=== PATIENT | female | born 1950 | race Caucasian/White ===

== ENCOUNTER 2017-01-24 17:56 | Inpatient (IN) | payer MEDICARE, OTHER ==
[~2017-01-24] VITALS: Ht 154.9 cm; Wt 73.0 kg
[~2017-01-24 17:56] MED LIST: ACET325 PO; AMLO5TAB22 PO; CARV6.25 PO; DUONI INH; FURO20 PO; GABA300C3 PO; METF850T PO; NITR.3 SL; PRAV10 PO; PROT40TA PO; SPIR25 PO; ST JTAB PO
[2017-01-24 19:14] VITALS: TEMP 97.8
--- NOTE | 2017-01-24 19:18 | PD ---
HPI Chief Complaint: midepigastric abdominal pain Time Seen by Provider: 19:03 Travel History International Travel<30 days: No Contact w/Intl Traveler<30days: No History of Present Illness HPI The patient is a 66 year old female who presents to the [facility] emergency department with a history of midepigastric abdominal pain that she reports began while she was in the shower approximately 45 minutes prior to arrival. The patient reports that the pain is constant. She reports that the pain as an aching sensation. She reports that the pain as a 6 out of 10 in severity. She denies ever having a pain like this previously. He denies having any nausea, vomiting, or diarrhea. She reports that her last bowel movement was earlier today. She denies having any blood in her stool or black or tarry stools. The patient reports that she had chest pain just prior to this , 1 hour ago. She reports that the chest pain has resolved. She reports that the pain was in the center of her chest. She reports having intermittent dyspnea on exertion. She denies having any cough, congestion, fever, chills. Otherwise on review of systems, the patient denies any recent neck pain, urinary symptoms, or neurologic symptoms. COUNTS INCLUDE 234 BEDS AT THE [facility] Past Medical History Narrative Medical The patient's past medical history is significant for chronic systolic congestive heart failure, cardiomyopathy, coronary artery disease, dementia, hypertension, hyperlipidemia, anxiety disorder, osteoporosis, depression, acid reflux, fibromyalgia, sleep apnea, peripheral neuropathy, history of an abdominal wall cellulitis and abscess related to MRSA in January of 2015. The patient also had symptomatic anemia with a blood transfusion provided in October 2015. The patient reports that she cannot recall where the site of bleeding was at that time. Hx Anticoagulant Therapy: Yes (ASPIRIN) Arthritis: Yes Asthma: No Autoimmune Disease: No Blood Disorders: No Anxiety: Yes Depression: Yes Heart Rhythm Problems: No Cancer: No Cardiovascular Problems: Yes High Cholesterol: No Chemotherapy: No Chest Pain: Yes Congestive Heart Failure: Yes COPD: Yes Cerebrovascular Accident: Yes Coronary Artery Disease: Yes Dementia: Yes Diabetes: Yes Diminished Hearing: No Endocrine: No Fibromyalgia: Yes Gastrointestinal Disorders: Yes (GERD) GERD: Yes Glaucoma: No Genitourinary: No Headaches: No Hepatitis: No Hiatal Hernia: Yes Hypertension: Yes Immune Disorder: No Kidney Stones: No Musculoskeletal: No Neurologic: No Psychiatric: No Reproductive: No Respiratory: Yes (COPD) Immunizations Current: No Migraines: No Myocardial Infarction: No Radiation Therapy: No Renal Failure: No Seizures: No Sickle Cell Disease: No Sleep Apnea: Yes Thyroid Disease: No Ulcer: No Menopausal: Yes : 6 Para: 4 Miscarriage: 2 Tubal Ligation: Yes Past Surgical History Narrative Surgical The patient's past surgical history is significant for a ventral hernia repair, AICD placement, vaginal surgery, breast augmentation and reversal, history of cardiac catheterization. Abdominal Surgery: Yes (VENTRICAL HERNIA REPAIR) AICD: Yes (2012) Appendectomy: No Arteriovenous Shunt: No Cardiac Surgery: No Cholecystectomy: No Ear Surgery: No Endocrine Surgery: No Eye Surgery: No Genitourinary Surgery: No Gynecologic Surgery: Yes (CERVICAL & VAGINAL REBUILT 1972, STITCHES & BREAST REDUCTION IN HER 30'S) Insulin Pump: No Joint Replacement: No Oral Surgery: No Pacemaker: Yes (AICD) Thoracic Surgery: Yes (IMPLANTS PLACED AND REMOVED) Other Surgery: Yes (BREAST AUGMENTATION AND REVERSAL ) Social History Alcohol Use: No Tobacco Use: No (quit 2013) Substance Use: No Allergies-Medications (Allergen,Severity, Reaction): Coded Allergies: Keflex (Verified Allergy, Intermediate, Hives, 01/24/17) MRI PRECAUTION (Verified Adverse Reaction, Severe, NON REVO PACEMAKER LRS, 01/24/17) *MDRO Multi-Drug Resistant Organism (Unverified Adverse Reaction, Unknown , 01/24/17) MRSA abdomen 01/2015. Reported Meds & Prescriptions Reported Meds & Active Scripts Active Tylenol (Acetaminophen) 325 Mg Tab 650 Mg PO Q4H PRN 30 Days Reported Pravastatin 10 Mg Tab 10 Mg PO HS Metformin (Metformin HCl) 850 Mg Tab 850 Mg PO TIDPC With meals Gabapentin 300 Mg Cap 300 Mg PO TID Lasix (Furosemide) 20 Mg Tab 20 Mg PO DAILY Aspirin 81 Mg Chew 81 Mg CHEW ONCE Carvedilol 3.125 Mg Tab 3.125 Mg PO BID Amlodipine (Amlodipine Besylate) 5 Mg Tab 5 Mg PO DAILY Spironolactone 25 Mg Tab 25 Mg PO BID Review of Systems Except as stated in HPI: all other systems reviewed are Neg General / Constitutional: No: Fever Eyes: No: Visual changes HENT: No: Headaches Cardiovascular: Positive: Chest Pain or Discomfort, Dyspnea on exertion Respiratory: Positive: Shortness of Breath, No: Cough Gastrointestinal: Positive: Abdominal Pain, No: Nausea, Vomiting, Hematemesis , Hematochezia, Constipation, Changes in Bowel Habits, Indigestion, Loss of Appetite Genitourinary: No: Dysuria Musculoskeletal: No: Pain Skin: No Rash Neurologic: No: Weakness, Change in Mentation, Slurred Speech, Sensory Disturbance Psychiatric: No: Depression Endocrine: No: Polydipsia Hematologic/Lymphatic: No: Easy Bruising Physical Exam Narrative General: The patient is a well-developed well-nourished female in no acute distress. Head and Neck exam: Head is normocephalic atraumatic. Eyes: EOMI, pupils are equal round and reactive to light. Nose: Midline septum with pink mucous membranes Mouth: Dentition unremarkable. Moist mucus membranes. Posterior oropharynx is not erythematous. No tonsillar hypertrophy. Uvula midline. Airway patent. Neck: No palpable lymphadenopathy. No nuchal rigidity. No thyromegaly. Cardiovascular: Regular rate and rhythm without murmurs, gallops, or rubs. Lungs: Clear to auscultation bilaterally. No wheezes, rhonchi, or rales. Abdomen: Soft, with midepigastric abdominal pain on palpation along with right upper quadrant abdominal discomfort on deep palpation. No other tenderness on palpation of the other quadrants of the abdomen. No guarding, rebound, or rigidity. Negative Baylis sign. Normal bowel sounds are audible. No tenderness on palpation of McBurney's point. Extremities: No clubbing, cyanosis, or edema. 2+ pulses in all 4 extremities. No calf tenderness on palpation. Back: No costovertebral angle tenderness to palpation. Neurologic Exam: Grossly nonfocal. Skin Exam: No rash noted. Intact skin that is warm and dry. Data Data Last Documented VS Vital Signs Date Time Temp Pulse Resp B/P Pulse Ox O2 Delivery O2 Flow Rate FiO2 01/24/17 19:23 70 18 178/77 97 Room Air 01/24/17 19:14 97.8 Orders Electrocardiogram (01/24/17 19:05) Complete Blood Count With Diff (01/24/17 19:05) Comprehensive Metabolic Panel (01/24/17 19:05) Creatine Kinase (Cpk) (01/24/17 19:05) Ckmb (Isoenzyme) Profile (01/24/17 19:05) Troponin I (7/9/17 19:05) B-Type Natriuretic Peptide (01/24/17 19:05) Prothrombin Time / Inr (Pt) (01/24/17 19:05) Act Partial Throm Time (Ptt) (01/24/17 19:05) Lipase (01/24/17 19:05) Urinalysis - C+S If Indicated (01/24/17 19:05) Magnesium (Mg) (01/24/17 19:05) Chest, Single Ap (01/24/17 19:05) Iv Access Insert/Monitor (01/24/17 19:05) Ecg Monitoring (01/24/17 19:05) Oximetry (01/24/17 19:05) Type And Screen (01/24/17 19:05) Aspirin Chew (Aspirin Chew) (01/24/17 20:00) Nitroglycerin 2% Oint (Nitroglycerin 2% (01/24/17 20:00) Pantoprazole Inj (Protonix Inj) (01/24/17 20:00) Calcium Gluconate Inj (Calcium Gluconate (01/24/17 21:00) Sodium Chlor 0.9% 250 Ml Inj (Ns 250 Ml (01/24/17 21:00) Ct Abd/Pel W/O Iv Contrast (01/24/17 20:53) Admit Order (Ed Use Only) (01/24/17 21:23) Labs Laboratory Tests Test 01/24/17 19:45 White Blood Count 9.2 TH/MM3 Red Blood Count 4.47 MIL/MM3 Hemoglobin 12.9 GM/DL Hematocrit 38.3 % Mean Corpuscular Volume 85.6 FL Mean Corpuscular Hemoglobin 28.9 PG Mean Corpuscular Hemoglobin 33.8 % Concent Red Cell Distribution Width 14.2 % Platelet Count 332 TH/MM3 Mean Platelet Volume 8.0 FL Neutrophils (%) (Auto) 74.1 % Lymphocytes (%) (Auto) 16.8 % Monocytes (%) (Auto) 5.7 % Eosinophils (%) (Auto) 2.7 % Basophils (%) (Auto) 0.7 % Neutrophils # (Auto) 6.8 TH/MM3 Lymphocytes # (Auto) 1.5 TH/MM3 Monocytes # (Auto) 0.5 TH/MM3 Eosinophils # (Auto) 0.2 TH/MM3 Basophils # (Auto) 0.1 TH/MM3 CBC Comment DIFF FINAL Differential Comment Prothrombin Time 10.6 SEC Prothromb Time International 1.0 RATIO Ratio Activated Partial 27.9 SEC Thromboplast Time Sodium Level 140 MEQ/L Potassium Level 4.7 MEQ/L Chloride Level 110 MEQ/L Carbon Dioxide Level 21.5 MEQ/L Anion Gap 9 MEQ/L Blood Urea Nitrogen 55 MG/DL Creatinine 1.94 MG/DL Estimat Glomerular Filtration 26 ML/MIN Rate Random Glucose 90 MG/DL Calcium Level 7.0 MG/DL Protein Corrected Calcium 6.9 MG/DL Magnesium Level 1.6 MG/DL Total Bilirubin 0.2 MG/DL Aspartate Amino Transf 11 U/L (AST/SGOT) Alanine Aminotransferase 12 U/L (ALT/SGPT) Alkaline Phosphatase 80 U/L Total Creatine Kinase 45 U/L Troponin I 0.07 NG/ML B-Type Natriuretic Peptide 28 PG/ML Total Protein 7.5 GM/DL Albumin 3.3 GM/DL Lipase 255 U/L Blood Type A POSITIVE Antibody Screen NEGATIVE MDM Medical Decision Making Medical Screen Exam Complete: Yes Emergency Medical Condition: Yes Medical Record Reviewed: Yes Interpretation(s) Last Impressions Abdomen/Pelvis CT 01/24/172052 Signed Impressions: Service Date/Time: Tuesday, January 24, 2017 21:46 - CONCLUSION: 1. Small nonobstructing renal calculi. 2. Bilateral stable adrenal adenomas. 3. Small hiatal hernia. 4. Moderate amount of stool in the distal colon. Matthias Kimball MD Chest X-Ray 01/24/17 190 Signed Impressions: Service Date/Time: Tuesday, January 24, 2017 19:03 - CONCLUSION: No acute disease. Matthias Kimball MD Differential Diagnosis Peptic ulcer disease, versus acid reflux, versus acute coronary syndrome, versus pancreatitis, versus viral syndrome, versus symptomatic anemia. Narrative Course During the course of the patients emergency department visit, the patients history, examination, and differential diagnosis were reviewed with the patient. The patient had IV access obtained and blood work sent for analysis. The patient was placed on a feeder associate with oximetry and blood pressure monitoring. An ECG was done on arrival. The patient's ECG reveals a sinus rhythm heart rate of 71, left anterior fascicular block, left ventricular hypertrophy is noted, QRS duration is 115 ms, QTC 452 ms, no acute ST segment elevation, T waves are inverted in lead 1, aVL. The patient was initially provided aspirin 162 mg by mouth 1. Nitroglycerin 1 inch the chest wall, Protonix 80 mg IV. The patients laboratory studies were reviewed and remarkable for a BUN and creatinine that are increased compared to previously. The patient does have a baseline level of renal insufficiency that is worse today. Lipase within normal limits, troponin I is 0.07, and the intermediate range which could be related to the patient's renal insufficiency, however given the patient's chest pain she will be ruled out with serial cardiac enzymes. CPK is within normal limits. CBC is unremarkable, no evidence of anemia. Radiology studies were reviewed and remarkable for a chest x-ray that shows no acute abnormality. CT scan abdomen and pelvis shows a moderate amount of stool in the distal colon, renal calculi that are nonobstructing, stable adrenal adenomas, and a hiatal hernia. No other acute abnormality. The patients results were discussed with the patient, including the plan of care. I explained that further testing and/ or monitoring is indicated based on the patients history, examination, and/ or laboratory findings. Therefore, I recommended admission for additional evaluation. The patient expressed understanding and was agreeable with this plan. The patient was admitted to the hospital in stable condition and sent to a bed under the care of Dr. Muir. Physician Communication Physician Communication The patient's case was discussed with Dr. Muir, who did agree to admit the patient for further evaluation and treatment at this time. Diagnosis Primary Impression: Chest pain, rule out acute myocardial infarction Additional Impression: Abdominal pain Qualified Code: R10.13 - Epigastric pain Admitting Information Admitting Physician Requests: Admit Desire Reinoso MD Jan 24, 2017 19:17
--- NOTE | 2017-01-24 19:21 | RADRPT ---
EXAM DATE/TIME: 01/24/2017 19:03 [facility] COMPARISON: CHEST SINGLE AP, November 13, 2015, 6:36. INDICATIONS : Chest pain MEDICAL HISTORY : None. SURGICAL HISTORY : Pacemaker. ENCOUNTER: Initial ACUITY: 1 day PAIN SCORE: 4/10 LOCATION: chest FINDINGS: A single view of the chest demonstrates the lungs to be symmetrically aerated without evidence of mas s, infiltrate or effusion. The cardiomediastinal contours are unremarkable. There is a left subclavi an transvenous pacer in place. Osseous structures are intact. CONCLUSION: No acute disease. Matthias Kimball MD on January 24, 2017 at 19:19 Board Certified Radiologist. This report was verified electronically.
[2017-01-24 19:22] VITALS: O2SAT 96
[2017-01-24 19:23] VITALS: BP 178/77; PULSE 70; RESP 18; O2SAT 97
[2017-01-24] MEDS ORDERED: CARV3.12 PO (19:31)
[2017-01-24] MEDS ORDERED: ASPI81CH CHEW (19:31)
[2017-01-24] MEDS ORDERED: FURO1TAB62 PO (19:31)
[2017-01-24] MEDS ORDERED: METF850T PO (19:31)
[2017-01-24] MEDS ORDERED: SPIR25TA PO (19:31)
[2017-01-24] MEDS ORDERED: GABA300C5 PO (19:31)
[2017-01-24] MEDS ORDERED: AMLO5TAB2 PO (19:31)
[2017-01-24] MEDS ORDERED: PRAV10TA PO (19:31)
[2017-01-24] MEDS ORDERED: NITROGLYCERIN 2% OINT 1 GM PACKET TOPICAL ONE (20:00)
[2017-01-24] MEDS ORDERED: ASPIRIN 81 MG CHEW TAB CHEW ONE (20:00)
[2017-01-24 20:08] LABS: AUTOMATED NEUTROPHIL # 6.8 TH/MM3 (1.8-7.7); BASOPHIL # 0.1 TH/MM3 (0-0.2); BASOPHIL % 0.7 % (0.0-2.0); EOSINOPHIL # 0.2 TH/MM3 (0-0.4); EOSINOPHIL % 2.7 % (0.0-4.0); HEMATOCRIT 38.3 % (35.0-46.0); HEMO FLAGS DIFF FINAL; LYMPH % 16.8 % (9.0-44.0); LYMPHOCYTE # 1.5 TH/MM3 (1.0-4.8); MEAN CELL VOLUME 85.6 FL (80.0-100.0); MEAN CORPUSCULAR HEMOGLOBIN 28.9 PG (27.0-34.0); MEAN CORPUSCULAR HGB CONC 33.8 % (32.0-36.0); MONO % 5.7 % (0.0-8.0); NEUT % 74.1 % (16.0-70.0); PLATELET COUNT 332 TH/MM3 (150-450); RED BLOOD COUNT 4.47 MIL/MM3 (4.00-5.30); RED CELL DISTRIBUTION WIDTH 14.2 % (11.6-17.2); WHITE BLOOD COUNT 9.2 TH/MM3 (4.0-11.0)
[2017-01-24 20:26] LABS: APTT (PATIENT) 27.9 SEC (24.3-30.1); PROTHROMBIN TIME - PATIENT 10.6 SEC (9.8-11.6)
[2017-01-24 20:38] LABS: BICARBONATE 21.5 MEQ/L (21.0-32.0); MAGNESIUM 1.6 MG/DL (1.5-2.5); POTASSIUM 4.7 MEQ/L (3.5-5.1)
[2017-01-24 20:44] LABS: TOTAL BILIRUBIN ADULT 0.2 MG/DL (0.2-1.0)
[2017-01-24 20:45] LABS: CALCIUM-PROTEIN CORRECTED 6.9 MG/DL (8.5-10.1)
[2017-01-24] MEDS ORDERED: CALCIUM GLUCONATE INJ 1 GM in DEXTROSE 5% IN WATER 100ML INJ 100 ML IV ONE ×2 (21:00)
[2017-01-24] MEDS ORDERED: SODIUM CHLOR 0.9% 250 ML INJ 250 ML IV ONE (21:00)
[2017-01-24] MEDS: PANTOPRAZOLE INJ 80 MG in SODIUM CHLORIDE 0.9% INJ 100 ML IV SCH (21:42)
[2017-01-24 22:06] VITALS: BP 152/69; PULSE 65; RESP 16; O2SAT 97
--- NOTE | 2017-01-24 22:06 | RADRPT ---
EXAM DATE/TIME: 01/24/2017 21:46 [facility] COMPARISON: CT ABDOMEN & PELVIS W/O CONTRAST, January 18, 2015, 8:42. INDICATIONS : Chest abdomen were pain ORAL CONTRAST: No oral contrast ingested. RADIATION DOSE: 14.00 CTDIvol (mGy) MEDICAL HISTORY : Cerebrovascular disease. Cardiovascular disease Congestive heart failure. Hypertension, diabetes, dem entia SURGICAL HISTORY : Umbilical hernia repair. Defibrillator. ENCOUNTER: Initial ACUITY: 1 day PAIN SCALE: 5/10 LOCATION: abdomen TECHNIQUE: Volumetric scanning of the abdomen and pelvis was performed. Using automated exposure control and ad justment of the mA and/or kV according to patient size, radiation dose was kept as low as reasonably achievable to obtain optimal diagnostic quality images. DICOM format image data is available electro nically for review and comparison. FINDINGS: LOWER LUNGS: The visualized lower lungs are clear. Coronary artery calcifications are present. There is a small hi atal hernia. There are small calcified granulomas in the right lung base. LIVER: Homogeneous density without lesion. There is no dilation of the biliary tree. No calcified gallston es. The gallbladder is unremarkable. SPLEEN: Normal size without lesion. PANCREAS: Within normal limits. KIDNEYS: Normal in size and shape. There is no mass or hydronephrosis. There are small nonobstructing bilater al renal calculi. ADRENAL GLANDS: There is small stable bilateral adrenal adenomas again noted. VASCULAR: There is no aortic aneurysm. BOWEL/MESENTERY: No oral contrast was given sensitivity. There is a moderate amount of stool in the distal colon. Ther e is no free intraperitoneal air or fluid. ABDOMINAL WALL: Within normal limits. RETROPERITONEUM: There is no lymphadenopathy. BLADDER: No wall thickening or mass. REPRODUCTIVE: Within normal limits. INGUINAL: There is no lymphadenopathy or hernia. MUSCULOSKELETAL: Within normal limits for patient age. CONCLUSION: 1. Small nonobstructing renal calculi. 2. Bilateral stable adrenal adenomas. 3. Small hiatal hernia. 4. Moderate amount of stool in the distal colon. Matthias Kimball MD on January 24, 2017 at 21:58 Board Certified Radiologist. This report was verified electronically.
[2017-01-24] MEDS ORDERED: SODIUM CHLORIDE 0.9% FLUSH 10 ML FLUSH IV FLUSH PRN (22:15)
[2017-01-24] MEDS ORDERED: NALOXONE HCL 0.4 MG/ML AMP IV PRN (22:15)
[2017-01-25] VITALS (11 sets, daily range): BP systolic 135–162; BP diastolic 67–81; PULSE 60–93; RESP 16–20; TEMP 97.4–98.2; O2SAT 93–99
[2017-01-25 01:04] LABS: CALCIUM-PROTEIN CORRECTED 8.6 MG/DL (8.5-10.1)
[2017-01-25 04:50] LABS: AUTOMATED NEUTROPHIL # 3.8 TH/MM3 (1.8-7.7); BASOPHIL # 0.1 TH/MM3 (0-0.2); EOSINOPHIL # 0.3 TH/MM3 (0-0.4); EOSINOPHIL % 4.2 % (0.0-4.0); HEMATOCRIT 32.4 % (35.0-46.0); HEMO FLAGS DIFF FINAL; LYMPHOCYTE # 1.9 TH/MM3 (1.0-4.8); MEAN CELL VOLUME 85.5 FL (80.0-100.0); MEAN CORPUSCULAR HGB CONC 33.9 % (32.0-36.0); MONO % 8.5 % (0.0-8.0); NEUT % 57.3 % (16.0-70.0); PLATELET COUNT 275 TH/MM3 (150-450); RED BLOOD COUNT 3.79 MIL/MM3 (4.00-5.30); RED CELL DISTRIBUTION WIDTH 14.4 % (11.6-17.2); WHITE BLOOD COUNT 6.6 TH/MM3 (4.0-11.0)
[2017-01-25 05:18] LABS: ANION GAP 9 MEQ/L (5-15); AST (GOT) 9 U/L (15-37); BICARBONATE 22.4 MEQ/L (21.0-32.0); BLOOD UREA NITROGEN 56 MG/DL (7-18); CHLORIDE 111 MEQ/L (98-107); GLOMERULAR FILTRATION RATE 22 ML/MIN (>89); POTASSIUM 3.8 MEQ/L (3.5-5.1); SODIUM (NA) 142 MEQ/L (136-145)
[2017-01-25 05:21] LABS: ALKALINE PHOSPHATASE 71 U/L (45-117); ALT (GPT) 12 U/L (10-53); TOTAL BILIRUBIN ADULT 0.2 MG/DL (0.2-1.0)
[2017-01-25] MEDS: PANTOPRAZOLE INJ 80 MG in SODIUM CHLORIDE 0.9% INJ 100 ML IV SCH ×2 (06:14→19:08)
[2017-01-25] MEDS: SODIUM CHLORIDE 0.9% FLUSH 10 ML FLUSH IV FLUSH SCH ×2 (09:00→21:29)
--- NOTE | 2017-01-25 09:07 | HHI.HP ---
History of Present Illness Service Family medicine Primary Care Physician James Muir, DO Admission Diagnosis Midepigastric abdominal pain, Cp R/O IA Diagnoses: (1) Abdominal pain (2) Chest pain, rule out acute myocardial infarction (3) CKD (chronic kidney disease) stage 4, GFR 15-29 ml/min History of Present Illness The patient is a 66 year old female who presents to the [facility] emergency department with midepigastric abdominal pain and chest discomfort. . Patient is a poor historian and information has been obtained through chart. Abdomen continues to be tender on palpation. Patient reported that the pain was constant and aching sensation. She denies pain currently however is tender on palpation. Denies having any nausea, vomiting, or diarrhea. She reports that her last bowel movement was yesterday. She denies having any blood in her stool or black or tarry stools. She also reported that she had pain in the center of her chest. She reports having intermittent dyspnea on exertion. She denies having any cough, congestion, fever, chills. Review of Systems Constitutional: COMPLAINS OF: Fatigue, DENIES: Dizziness Respiratory: COMPLAINS OF: Shortness of breath, DENIES: Cough, Snoring, Sputum production Cardiovascular: COMPLAINS OF: Chest pain, DENIES: Lower Extremity Edema Gastrointestinal: COMPLAINS OF: Abdominal pain, DENIES: Black stools, Bloody stools, Constipation, Diarrhea, Nausea, Vomiting Musculoskeletal: DENIES: Joint pain, Stiffness Integumentary: DENIES: Pruritus, Rash Neurologic: DENIES: Abnormal gait, Headache Psychiatric: DENIES: Anxiety, Confusion Past Family Social History Allergies: Coded Allergies: Keflex (Verified Allergy, Intermediate, Hives, 01/24/17) MRI PRECAUTION (Verified Adverse Reaction, Severe, NON REVO PACEMAKER LRS, 01/24/17) *MDRO Multi-Drug Resistant Organism (Unverified Adverse Reaction, Unknown , 01/24/17) MRSA abdomen 01/2015. Past Medical History Chronic systolic congestive heart failure, cardiomyopathy, coronary artery disease, dementia, hypertension, hyperlipidemia, anxiety disorder, osteoporosis , depression, acid reflux, diabetes, fibromyalgia, sleep apnea, peripheral neuropathy, history of an abdominal wall cellulitis and abscess related to MRSA in January of 2015. The patient also had symptomatic anemia with a blood transfusion provided in October 2015. Past Surgical History Patient's past surgical history is significant for a ventral hernia repair, AICD placement, vaginal surgery, breast augmentation and reversal, history of cardiac catheterization. Active Ordered Medications Current Medications Medications (Trade) Dose Ordered Sig/Liliya Route Start Time Stop Time Status Last Admin (Protonix Inj/NS Inj) 100 ml @ 10 mls/hr Q10H IV 01/24/17 20:00 01/25/17 06:14 (NS Flush) 2 ml UNSCH PRN IV FLUSH 01/24/17 22:15 (NS Flush) 2 ml BID IV FLUSH 01/25/17 09:00 (Narcan Inj) 0.4 mg UNSCH PRN IV 01/24/17 22:15 Social History Quit smoking in 2013 No ETOH use Lives with son Physical Exam Vital Signs Vital Signs Date Time Temp Pulse Resp B/P Pulse Ox O2 Delivery O2 Flow Rate FiO2 01/25/17 08:38 98.0 65 16 162/75 97 01/25/17 07:26 97 Nasal Cannula 3.00 01/25/17 04:30 97.6 64 18 135/81 99 01/25/17 04:00 60 01/25/17 02:50 78 01/25/17 01:31 97.4 63 18 162/67 99 01/24/17 22:06 65 16 152/69 97 Nasal Cannula 2 01/24/17 19:23 70 18 178/77 97 Room Air 01/24/17 19:22 96 Room Air 01/24/17 19:14 97.8 Physical Exam GENERAL: This is a well-nourished, well-developed patient, in no apparent distress. SKIN: No rashes, ecchymoses or lesions. Cool and dry. CARDIOVASCULAR: Regular rate and rhythm without murmurs, gallops, or rubs. RESPIRATORY: Clear to auscultation. Breath sounds equal bilaterally. No wheezes , rales, or rhonchi. GASTROINTESTINAL: Abdomen soft, tender to palpation, nondistended. No hepato- splenomegaly, or palpable masses. No guarding. MUSCULOSKELETAL: Extremities without cyanosis, or edema. No calf tenderness. Negative Homans sign bilaterally. NEUROLOGICAL: Awake and alert. Poor historian. Normal speech. Laboratory Laboratory Tests Test 01/24/17 01/25/17 01/25/17 19:45 00:30 04:37 White Blood Count 9.2 6.6 Red Blood Count 4.47 3.79 Hemoglobin 12.9 11.0 Hematocrit 38.3 32.4 Mean Corpuscular Volume 85.6 85.5 Mean Corpuscular Hemoglobin 28.9 29.0 Mean Corpuscular Hemoglobin 33.8 33.9 Concent Red Cell Distribution Width 14.2 14.4 Platelet Count 332 275 Mean Platelet Volume 8.0 7.4 Neutrophils (%) (Auto) 74.1 57.3 Lymphocytes (%) (Auto) 16.8 29.0 Monocytes (%) (Auto) 5.7 8.5 Eosinophils (%) (Auto) 2.7 4.2 Basophils (%) (Auto) 0.7 1.0 Neutrophils # (Auto) 6.8 3.8 Lymphocytes # (Auto) 1.5 1.9 Monocytes # (Auto) 0.5 0.6 Eosinophils # (Auto) 0.2 0.3 Basophils # (Auto) 0.1 0.1 CBC Comment DIFF FINAL DIFF FINAL Differential Comment Prothrombin Time 10.6 Prothromb Time International 1.0 Ratio Activated Partial 27.9 Thromboplast Time Sodium Level 140 142 Potassium Level 4.7 3.8 Chloride Level 110 111 Carbon Dioxide Level 21.5 22.4 Anion Gap 9 9 Blood Urea Nitrogen 55 56 Creatinine 1.94 2.22 Estimat Glomerular Filtration 26 22 Rate Random Glucose 90 192 Calcium Level 7.0 8.7 8.7 Protein Corrected Calcium 6.9 8.6 Magnesium Level 1.6 Total Bilirubin 0.2 0.2 Aspartate Amino Transf 11 9 (AST/SGOT) Alanine Aminotransferase 12 12 (ALT/SGPT) Alkaline Phosphatase 80 71 Total Creatine Kinase 45 Troponin I 0.07 0.06 0.06 B-Type Natriuretic Peptide 28 Total Protein 7.5 7.4 6.9 Albumin 3.3 3.1 Lipase 255 Blood Type A POSITIVE Antibody Screen NEGATIVE Result Diagram: 01/25/1743601/25/17436 Imaging Last 72 hours Impressions Abdomen/Pelvis CT 01/24/172052 Signed Impressions: Service Date/Time: Tuesday, January 24, 2017 21:46 - CONCLUSION: 1. Small nonobstructing renal calculi. 2. Bilateral stable adrenal adenomas. 3. Small hiatal hernia. 4. Moderate amount of stool in the distal colon. Matthias Kimball MD Chest X-Ray 01/24/17 [id number] Signed Impressions: Service Date/Time: Tuesday, January 24, 2017 19:03 - CONCLUSION: No acute disease. Matthias Kimball MD Assessment and Plan Problem List: (1) Abdominal pain Status: Acute Plan: Abdomen is tender to palpation. On protonix gtt. GI consulted. CT of abdomen and pelvis with nonobstructing renal calculi. 2. Bilateral stable adrenal adenomas. 3. Small hiatal hernia. 4. Moderate amount of stool in the distal colon (2) Chest pain, rule out acute myocardial infarction Status: Acute Plan: Mildly elevated troponin at .06 and .07 could be related to CKD however will consult cardiology with patient significant heart disease (3) Hypertension Status: Acute Plan: continue current therapy will monitor (4) Diabetes mellitus Status: Acute Plan: BS ordered AC and HS with SS . Metformin on hold (5) CKD (chronic kidney disease) stage 4, GFR 15-29 ml/min Status: Acute Plan: GFR 22 with a BUN of 55 and creat 2.22. Will monitor closely and recheck in AM Assessment and Plan Assessment and plan discussed with Dr. Muir Discussed Condition With Nursing Physician Attestation I and the A[employer] FACILITY MANAGER have both examined this patient and reviewed this note and I agree with these findings and plan of care. James Muir DO Problem Qualifiers (1) Abdominal pain: Qualified Code: R10.13 - Epigastric pain Eva Sosa [facility] Jan 25, 2017 09:07
[2017-01-25] MEDS ORDERED: ACETAMINOPHEN 325 MG TAB PO PRN (09:15)
[2017-01-25] MEDS ORDERED: ASPIRIN 81 MG CHEW TAB CHEW ONE (09:15)
[2017-01-25] MEDS ORDERED: DEXTROSE 50% IN WATER 50 ML VIAL(D50) IV PRN (10:00)
[2017-01-25] MEDS ORDERED: GLUCAGON 1 MG/ML VIAL OTHER PRN (10:00)
[2017-01-25] MEDS ORDERED: BISACODYL 10 MG SUPP RECTAL ONE (10:30)
--- NOTE | 2017-01-25 11:28 | MB ---
cc: CAITLYN CARTAGENA M.D. DATE OF CONSULTATION 01/25/2017 REASON FOR CONSULTATION Evaluation of elevated troponin. HISTORY OF PRESENT ILLNESS Iris Woodson is a 66-year-old female with known heart disease. She had a cardiac catheterization on October 28, 2012. Ejection fraction was 15-20%. The right coronary artery was subtotally occluded with [id number] collaterals. There were only irregularities of her left coronary system. Her last echo was April 26, 2013. Ejection fraction was 20-25% with mild to moderate mitral regurgitation and a left atrial size of 5.6 cm. She had a Biotronik defibrillator implanted by Dr. Azul. The last time this was checked at [facility] was August 20, 2014 and it showed normal operation. The patient has some dementia. She does not know where she lives she does not know who her doctor is. She knows she is at the hospital but does not know which one. She does not know what year this is other than it is in the year . She cannot tell me who the President is. She came in with abdominal pain and she points to the midportion of her abdomen; it is better now. I cannot elicit any chest pain from her at all. It is not clear to me who she has been following with from a cardiac perspective. She has seen multiple different providers. She had a cardiology consult by Dr. Whyte on April 17, 2014; that is the last insurance job titles she saw. She has got a mildly elevated troponin. I cannot elicit any anginal symptoms from her at all. She says she and her son live in the same place. Denies any chest pain, shortness of breath or any other cardiovascular complaints that I can elicit. MEDICATIONS Listed in the ER sheet include - 1. Pravastatin 10 mg. 2. Lasix 20 mg. 3. Carvedilol 3.125 b.i.d. 4. Amlodipine 5 mg. 5. Spirolactone 25 mg p.o. b.i.d. PAST MEDICAL HISTORY 1. Cardiomyopathy. 2. Coronary disease. 3. Dementia. 4. Hypertension. 5. Hyperlipidemia. 6. Anxiety. 7. Osteoporosis. 8. Depression. 9. Acid reflux. 10. Diabetes. 11. Fibromyalgia. 12. Carotid disease with apparent occlusion of the right internal carotid artery. 13. COPD. 14. Sleep apnea. PAST SURGICAL HISTORY 1. Ventral hernia repair. 2. AICD placement. 3. Vaginal surgery. 4. Breast augmentation and reversal. 5. Previous cath. MEDICATIONS LISTED HERE 1. Intravenous pantoprazole. 2. She has received aspirin 1 inch paste. 3. She is prescribed carvedilol. 4. Lasix. 5. Spironolactone. PHYSICAL EXAMINATION GENERAL: Physical exam reveals an elderly, alert, white female in no acute distress. VITAL SIGNS: Blood pressures fluctuate as high as 178/77 and as low as 135/81. HEENT: Exam is unremarkable. NECK: I do not appreciate any bruits. There is no JVD. CHEST: Clear to auscultation. CHEST EXAM: She has defibrillator in the left upper chest which is well-healed. CARDIAC EXAM: S1 andS2. Regular rate and rhythm. No murmurs or gallops appreciated. ABDOMEN: Soft, nontender. At this time bowel sounds are positive. EXTREMITIES: No clubbing, cyanosis or edema. Pedal pulses are reduced. IMAGING STUDIES She has had abdominopelvic CT and a chest x-ray. CT scan notable for small nonobstructive renal calculi, bilateral stable adrenal adenoma, small hiatal hernia. Her chest x-ray report describes no acute disease. LABORATORIES White count is normal. Hematocrit 32.4. BUN is 56, creatinine 2.22, potassium normal. Troponins are 0.07, 0.06, 0.06. Her creatinine has been all over the place; it was 1.03 in October 2015; this may have been spurious. Most of the other values are in the 1.4 to 1.6 range. Troponins were 0.07, 0.06 and 0.02. They were 0.12 in October 2015. They have a history of being a elevated up to 0.20 in 2013. Current elevations or not remarkable for her. CONCLUSIONS This is a 66-year-old woman with a known severe cardiomyopathy. She has a totally occluded right coronary artery. She comes in with abdominal pain. I really cannot elicit any anginal symptoms. Troponins are minimally elevated in a nonspecific fashion, not suggestive of ACS. She does not appear to have ACS on her exam. Her defibrillator has not been checked that we know of since September 02, so I am having [facility] check her defibrillator. I was not going to add an ANNIA or an ARB in view of the elevated BUN and creatinine. It may be worth having Renal see her. I will be available as needed. Please call if you have any questions. MD PRATIK Nelson/MICAH /11:06 AM /11:16 AM
[2017-01-25] MEDS: ENOXAPARIN SODIUM 30 MG/0.3 ML SYRINGE SQ SCH (11:30)
[2017-01-25] MEDS: INSULIN ASPART SUPPLEMENTAL SCALE SQ SCH ×3 (13:14→21:30)
--- NOTE | 2017-01-25 14:21 | EKG ---
Date Performed: 01/24/2017 Time Performed: 19:16:42 PTAGE: 66 years EKG: Sinus rhythm LEFT ANTERIOR FASCICULAR BLOCK LEFT VENTRICULAR HYPERTROPHY AND ST-T CHANGE POSSIBLE ANTERIOR MYOCAR DIAL INFARCTION POSSIBLE INFERIOR INFARCTION ABNORMAL ECG Since PREVIOUS TRACING , no significant change noted PREVIOUS TRACIN11/13/2015 06.03 DOCTOR: Rui Harper Interpretating Date/Time 01/25/2017 14:19:15
--- NOTE | 2017-01-25 16:18 | PD.CONS ---
HPI History of Present Illness This is a 66 year old female with hx AICD who presented to the ER for stomach pain. Onset yesterday, epigastric pain, pt cannot qualify further. The pain lasted an hour and then went away. Never had this pain before. Denies hx ulcers but pt was here for similar in 2016 had EGD 10/2015 that found medium size ulcer at GE junction, stricture, recommended repeat 4wks; colonoscopy at same time with poop prep to be repeated following day. Pt unaware if she repeated procedures but says she never followed up with GI as outpatient. NO n/ v, diarrhea, blood in stool, tarry stool, dysphagia. Pt does not know if she has lost weight. She is not currently having any pain. PFSH Past Medical History denies heart trouble but has AICD Past Surgical History AICD placement Coded Allergies: Keflex (Verified Allergy, Intermediate, Hives, 01/24/17) MRI PRECAUTION (Verified Adverse Reaction, Severe, NON REVO PACEMAKER LRS, 01/24/17) *MDRO Multi-Drug Resistant Organism (Unverified Adverse Reaction, Unknown , 01/24/17) MRSA abdomen 01/2015. Family History none Social History no ETOH no tobacco no illicit drugs Review of Systems Constitutional: DENIES: Fever Eyes: DENIES: Blurred vision Ears, nose, mouth, throat: DENIES: Hearing loss Respiratory: DENIES: Cough Cardiovascular: DENIES: Chest pain Gastrointestinal: DENIES: Abdominal pain, Black stools, Bloody stools, Constipation, Diarrhea, Nausea, Vomiting Genitourinary: DENIES: Hematuria Musculoskeletal: DENIES: Joint Swelling Integumentary: DENIES: Pruritus Hematologic/lymphatic: DENIES: Bruising Neurologic: DENIES: Abnormal gait Psychiatric: DENIES: Confusion GI Exam Vitals I&O Vital Signs Date Time Temp Pulse Resp B/P Pulse Ox O2 Delivery O2 Flow Rate FiO2 01/25/17 11:38 97.8 93 20 151/72 99 01/25/17 08:38 98.0 65 16 162/75 97 01/25/17 07:26 97 Nasal Cannula 3.00 01/25/17 04:30 97.6 64 18 135/81 99 01/25/17 04:00 60 01/25/17 02:50 78 01/25/17 01:31 97.4 63 18 162/67 99 01/24/17 22:06 65 16 152/69 97 Nasal Cannula 2 01/24/17 19:23 70 18 178/77 97 Room Air 01/24/17 19:22 96 Room Air 01/24/17 19:14 97.8 Imaging Last Impressions Abdomen/Pelvis CT 01/24/172052 Signed Impressions: Service Date/Time: Tuesday, January 24, 2017 21:46 - CONCLUSION: 1. Small nonobstructing renal calculi. 2. Bilateral stable adrenal adenomas. 3. Small hiatal hernia. 4. Moderate amount of stool in the distal colon. Matthias Kimball MD Chest X-Ray 01/24/171904 Signed Impressions: Service Date/Time: Tuesday, January 24, 2017 19:03 - CONCLUSION: No acute disease. Matthias Kimball MD Laboratory Test 01/24/17 01/25/17 01/25/17 19:45 00:30 04:37 White Blood Count 9.2 TH/MM3 6.6 TH/MM3 Red Blood Count 4.47 MIL/MM3 3.79 MIL/MM3 Hemoglobin 12.9 GM/DL 11.0 GM/DL Hematocrit 38.3 % 32.4 % Mean Corpuscular Volume 85.6 FL 85.5 FL Mean Corpuscular Hemoglobin 28.9 PG 29.0 PG Mean Corpuscular Hemoglobin 33.8 % 33.9 % Concent Red Cell Distribution Width 14.2 % 14.4 % Platelet Count 332 TH/MM3 275 TH/MM3 Mean Platelet Volume 8.0 FL 7.4 FL Neutrophils (%) (Auto) 74.1 % 57.3 % Lymphocytes (%) (Auto) 16.8 % 29.0 % Monocytes (%) (Auto) 5.7 % 8.5 % Eosinophils (%) (Auto) 2.7 % 4.2 % Basophils (%) (Auto) 0.7 % 1.0 % Neutrophils # (Auto) 6.8 TH/MM3 3.8 TH/MM3 Lymphocytes # (Auto) 1.5 TH/MM3 1.9 TH/MM3 Monocytes # (Auto) 0.5 TH/MM3 0.6 TH/MM3 Eosinophils # (Auto) 0.2 TH/MM3 0.3 TH/MM3 Basophils # (Auto) 0.1 TH/MM3 0.1 TH/MM3 CBC Comment DIFF FINAL DIFF FINAL Differential Comment Prothrombin Time 10.6 SEC Prothromb Time International 1.0 RATIO Ratio Activated Partial 27.9 SEC Thromboplast Time Sodium Level 140 MEQ/L 142 MEQ/L Potassium Level 4.7 MEQ/L 3.8 MEQ/L Chloride Level 110 MEQ/L 111 MEQ/L Carbon Dioxide Level 21.5 MEQ/L 22.4 MEQ/L Anion Gap 9 MEQ/L 9 MEQ/L Blood Urea Nitrogen 55 MG/DL 56 MG/DL Creatinine 1.94 MG/DL 2.22 MG/DL Estimat Glomerular Filtration 26 ML/MIN 22 ML/MIN Rate Random Glucose 90 MG/DL 192 MG/DL Calcium Level 7.0 MG/DL 8.7 MG/DL 8.7 MG/DL Protein Corrected Calcium 6.9 MG/DL 8.6 MG/DL Magnesium Level 1.6 MG/DL Total Bilirubin 0.2 MG/DL 0.2 MG/DL Aspartate Amino Transf 11 U/L 9 U/L (AST/SGOT) Alanine Aminotransferase 12 U/L 12 U/L (ALT/SGPT) Alkaline Phosphatase 80 U/L 71 U/L Total Creatine Kinase 45 U/L Troponin I 0.07 NG/ML 0.06 NG/ML 0.06 NG/ML B-Type Natriuretic Peptide 28 PG/ML Total Protein 7.5 GM/DL 7.4 GM/DL 6.9 GM/DL Albumin 3.3 GM/DL 3.1 GM/DL Lipase 255 U/L Blood Type A POSITIVE Antibody Screen NEGATIVE Physical Examination HEENT: PERRL; normocephalic; atraumatic; no jaundice. CHEST: CTA CARDIAC: RRR ABDOMEN: Soft, nondistended, nontender; no hepatosplenomegaly; bowel sounds are present in all four quadrants. EXTREMITIES: No clubbing, cyanosis, or edema. SKIN: Normal; no rash; no jaundice. GAS WELDER APPRENTICE: alert, oriented to self and place. Assessment and Plan Plan ASSESSMENT - epigastric pain - onset yesterday, has improved and pt currently asymptomatic. She does have hx ulcer, had EGD/colonoscopy 2015 --> med size ulcer GE junction, stricture, repeat EGD in 4 weeks, colonoscopy poor prep repeat following day. - occluded right coronary artery - per cardiology - AICD - per cardiology defibrillator is going to be checked. PLAN - KAILYN - f/u with GI as outpatient for repeat EGD & colonoscopy - supportive care - okay to d/c from GI standpoint This pt seen by myself and Dr Segal and this note is written on his behalf Kadi Catalan Jan 25, 2017 16:18
[2017-01-25] MEDS: DOCUSATE SODIUM 50 MG/SENNA 8.6 MG TAB PO SCH (21:29)
[2017-01-25] MEDS: CARVEDILOL 3.125 MG TAB PO SCH (21:29)
[2017-01-25] MEDS: SPIRONOLACTONE 25 MG TAB PO SCH (21:29)
[2017-01-25] MEDS: PRAVASTATIN SOD 10 MG TAB PO SCH (21:29)
[2017-01-26] VITALS (7 sets, daily range): BP systolic 139–177; BP diastolic 67–79; PULSE 63–77; RESP 17–20; TEMP 96.9–98.5; O2SAT 94–96
[2017-01-26] MEDS: PANTOPRAZOLE INJ 80 MG in SODIUM CHLORIDE 0.9% INJ 100 ML IV SCH (02:00)
[2017-01-26 06:30] LABS: ANION GAP 10 MEQ/L (5-15); BICARBONATE 19.3 MEQ/L (21.0-32.0); BLOOD UREA NITROGEN 56 MG/DL (7-18); CHLORIDE 112 MEQ/L (98-107); GLOMERULAR FILTRATION RATE 23 ML/MIN (>89); POTASSIUM 4.5 MEQ/L (3.5-5.1); SODIUM (NA) 141 MEQ/L (136-145)
[2017-01-26 06:31] LABS: HDL CHOLESTEROL 32.3 MG/DL (40.0-60.0); LDL CHOLESTEROL 50 MG/DL (0-99)
[2017-01-26 06:34] LABS: AUTOMATED NEUTROPHIL # 4.9 TH/MM3 (1.8-7.7); BASOPHIL # 0.1 TH/MM3 (0-0.2); EOSINOPHIL # 0.3 TH/MM3 (0-0.4); EOSINOPHIL % 3.4 % (0.0-4.0); HEMO FLAGS DIFF FINAL; LYMPH % 22.6 % (9.0-44.0); LYMPHOCYTE # 1.7 TH/MM3 (1.0-4.8); MEAN CELL VOLUME 85.8 FL (80.0-100.0); MEAN CORPUSCULAR HEMOGLOBIN 28.9 PG (27.0-34.0); MEAN CORPUSCULAR HGB CONC 33.7 % (32.0-36.0); MONO % 8.8 % (0.0-8.0); NEUT % 64.2 % (16.0-70.0); PLATELET COUNT 320 TH/MM3 (150-450); RED BLOOD COUNT 4.08 MIL/MM3 (4.00-5.30); WHITE BLOOD COUNT 7.6 TH/MM3 (4.0-11.0)
[2017-01-26] MEDS: INSULIN ASPART SUPPLEMENTAL SCALE SQ SCH ×4 (07:00→21:00)
[2017-01-26] MEDS: SODIUM CHLORIDE 0.9% FLUSH 10 ML FLUSH IV FLUSH SCH ×2 (08:55→21:00)
[2017-01-26] MEDS: amLODIPine BESYLATE 5 MG TAB PO SCH (08:56)
[2017-01-26] MEDS: PANTOPRAZOLE SOD 40 MG DELAYED RELEASE TAB PO SCH (08:56)
[2017-01-26] MEDS: CARVEDILOL 3.125 MG TAB PO SCH ×2 (08:56→21:00)
[2017-01-26] MEDS: FUROSEMIDE 20 MG TAB PO SCH (08:56)
[2017-01-26] MEDS: SPIRONOLACTONE 25 MG TAB PO SCH ×2 (08:56→21:00)
--- NOTE | 2017-01-26 09:23 | HHI.PR ---
Subjective Remarks Patient resting comfortable. Denies any pain. Protonix gtt infusing. Objective Vital Signs Date Time Temp Pulse Resp B/P Pulse Ox O2 Delivery O2 Flow Rate FiO2 01/26/17 08:00 97.3 70 18 146/67 94 01/26/17 04:30 97.4 74 20 171/72 96 01/26/17 00:56 98.5 63 18 139/67 96 01/25/17 23:08 67 01/25/17 20:00 98.2 79 20 144/71 97 01/25/17 16:25 98.2 72 20 135/72 93 01/25/17 11:38 97.8 93 20 151/72 99 I/O 01/25/17 01/25/17 01/25/17 01/26/17 01/26/17 01/26/17 07:00 15:00 23:00 07:00 15:00 23:00 Intake Total 240 ml Output Total 0 ml Balance 240 ml Intake Oral 240 ml Output Urine Total 0 ml Result Diagram: 01/26/17 0526 01/25/17 0437 Imaging Last 72 hours Impressions Abdomen/Pelvis CT 01/24/172052 Signed Impressions: Service Date/Time: Tuesday, January 24, 2017 21:46 - CONCLUSION: 1. Small nonobstructing renal calculi. 2. Bilateral stable adrenal adenomas. 3. Small hiatal hernia. 4. Moderate amount of stool in the distal colon. Matthias Kimball MD Chest X-Ray 01/24/17 1905 Signed Impressions: Service Date/Time: Tuesday, January 24, 2017 19:03 - CONCLUSION: No acute disease. Matthias Kimball MD Objective Remarks GENERAL: Alert not oriented SKIN: Warm and dry. HEAD: Normocephalic. EYES: No scleral icterus. No injection or drainage. NECK: Supple, trachea midline. No JVD or lymphadenopathy. CARDIOVASCULAR: Regular rate and rhythm without murmurs, gallops, or rubs. RESPIRATORY: Breath sounds equal bilaterally. No accessory muscle use. GASTROINTESTINAL: Abdomen soft, non-tender, nondistended. MUSCULOSKELETAL: No cyanosis, or edema. BACK: Nontender without obvious deformity. No CVA tenderness. Medications and IVs Current Medications Medications (Trade) Dose Ordered Sig/Liliya Route Start Time Stop Time Status Last Admin (NS Flush) 2 ml UNSCH PRN IV FLUSH 01/24/17 22:15 (NS Flush) 2 ml BID IV FLUSH 01/25/17 09:00 01/26/17 08:55 (Narcan Inj) 0.4 mg UNSCH PRN IV 01/24/17 22:15 (Tylenol) 650 mg Q4H PRN PO 01/25/17 09:15 (Norvasc) 5 mg DAILY PO 01/26/17 09:00 01/26/17 08:56 (Coreg) 3.125 mg BID PO 01/25/17 21:00 01/26/17 08:56 (Lasix) 20 mg DAILY PO 01/26/17 09:00 01/26/17 08:56 (Pravachol) 10 mg HS PO 01/25/17 21:00 01/25/17 21:29 (Aldactone) 25 mg BID PO 01/25/17 21:00 01/26/17 08:56 (Lovenox Inj) 30 mg Q24H SQ 01/25/17 10:00 01/25/17 11:30 (D50w (Vial) Inj) 50 ml UNSCH PRN IV 01/25/17 10:00 (Glucagon Inj) 1 mg UNSCH PRN OTHER 01/25/17 10:00 (Marine-Colace) 2 tab HS PO 01/25/17 21:00 01/25/17 21:29 (Protonix) 40 mg DAILY PO 01/26/17 09:00 01/26/17 08:56 Assessment and Plan Problem List: (1) Abdominal pain Status: Acute Plan: On protonix gtt which has been discontinued. GI consulted and cleared for discharge from their stand point. CT of abdomen and pelvis with nonobstructing renal calculi. 2. Bilateral stable adrenal adenomas. 3. Small hiatal hernia. 4. Moderate amount of stool in the distal colon Denies and abdominal pain and no tenderness noted. She does have hx ulcer, had EGD/colonoscopy 2015 --> med size ulcer GE junction, stricture (2) Chest pain, rule out acute myocardial infarction Status: Acute Plan: Mildly elevated troponin at .06 and .07 could be related to CKD however will consult cardiology with patient significant heart disease occluded right coronary artery - per cardiology AICD - per cardiology defibrillator is going to be checked (3) Hypertension Status: Acute Plan: continue current therapy will monitor (4) Diabetes mellitus Status: Acute Plan: BS ordered AC and HS with SS . Metformin on hold. BS 145-192 (5) CKD (chronic kidney disease) stage 4, GFR 15-29 ml/min Status: Acute Plan: GFR 23. Bun and Creat stable. (6) Vitamin D deficiency Status: Acute Plan: Replacement added Assessment and Plan Assessment and plan discussed with Dr. Muir Discussed Condition With Nursing Physician Attestation I and the BANQUET WAITER/WAITRESS have both examined this patient and reviewed this note and i agree with these findings and plan of care. James Muir DO Problem Qualifiers (1) Abdominal pain: Qualified Code: R10.13 - Epigastric pain Eva Sosa [facility] Jan 26, 2017 09:22
[2017-01-26] MEDS: CHOLECALCIFEROL (VIT D3) 5000 UNIT CAP PO SCH (10:02)
[2017-01-26] MEDS: ENOXAPARIN SODIUM 30 MG/0.3 ML SYRINGE SQ SCH (10:03)
--- NOTE | 2017-01-26 10:04 | HHI.FF ---
Face to Face Verification Diagnosis: (1) Congestive heart failure (2) Cardiomyopathy Physical Therapy Order: Evaluate and Treat Occupational Therapy Order: Evaluate and Treat I have seen patient Iris Woodson on 01/26/17. My clinical findings support the need for the requested home health care services because: Ltd mobility - disease progression I certify that my clinical findings support that this patient is homebound because: Unsteady gait/balance Eva Sosa Jan 26, 2017 10:04
--- NOTE | 2017-01-26 14:02 | PD.CONS ---
HPI Service Nephrology Consult Requested By Dr. Muir Reason for Consult Acute renal insufficiency Primary Care Physician James Muir, DO History of Present Illness Patient is a 66-year-old white female with history of cardiomyopathy, AICD placement states that she has history of diabetes as well. Records she was on metformin, she came in with abdominal pain and inability to eat or drink properly creatinine went up to 2.2 and now declining since she started eating to 2.1 Review of Systems Constitutional: COMPLAINS OF: Fatigue Gastrointestinal: COMPLAINS OF: Abdominal pain Past Family Social History Allergies: Coded Allergies: Keflex (Verified Allergy, Intermediate, Hives, 01/24/17) MRI PRECAUTION (Verified Adverse Reaction, Severe, NON REVO PACEMAKER LRS, 01/24/17) *MDRO Multi-Drug Resistant Organism (Unverified Adverse Reaction, Unknown , 01/24/17) MRSA abdomen 01/2015. Past Medical History Cardiomyopathy AICD History of diabetes History of the hypertension Dementia History of cerebrovascular disease Past Surgical History AICD placed Reported Medications Reported Meds & Active Scripts Active Tylenol (Acetaminophen) 325 Mg Tab 650 Mg PO Q4H PRN 30 Days Reported Spironolactone 25 Mg Tab 25 Mg PO BID Pravastatin 10 Mg Tab 10 Mg PO HS Metformin (Metformin HCl) 850 Mg Tab 850 Mg PO TIDPC With meals Gabapentin 300 Mg Cap 300 Mg PO TID Lasix (Furosemide) 20 Mg Tab 20 Mg PO DAILY Aspirin 81 Mg Chew 81 Mg CHEW ONCE Carvedilol 3.125 Mg Tab 3.125 Mg PO BID Amlodipine (Amlodipine Besylate) 5 Mg Tab 5 Mg PO DAILY Active Ordered Medications Current Medications Medications (Trade) Dose Ordered Sig/Liliya Route Start Time Stop Time Status Last Admin (NS Flush) 2 ml UNSCH PRN IV FLUSH 01/24/17 22:15 (NS Flush) 2 ml BID IV FLUSH 01/25/17 09:00 01/26/17 08:55 (Narcan Inj) 0.4 mg UNSCH PRN IV 01/24/17 22:15 (Tylenol) 650 mg Q4H PRN PO 01/25/17 09:15 (Norvasc) 5 mg DAILY PO 01/26/17 09:00 01/26/17 08:56 (Coreg) 3.125 mg BID PO 01/25/17 21:00 01/26/17 08:56 (Lasix) 20 mg DAILY PO 01/26/17 09:00 01/26/17 08:56 (Pravachol) 10 mg HS PO 01/25/17 21:00 01/25/17 21:29 (Aldactone) 25 mg BID PO 01/25/17 21:00 01/26/17 08:56 (Lovenox Inj) 30 mg Q24H SQ 01/25/17 10:00 01/26/17 10:03 (D50w (Vial) Inj) 50 ml UNSCH PRN IV 01/25/17 10:00 (Glucagon Inj) 1 mg UNSCH PRN OTHER 01/25/17 10:00 (Marine-Colace) 2 tab HS PO 01/25/17 21:00 01/25/17 21:29 (Protonix) 40 mg DAILY PO 01/26/17 09:00 01/26/17 08:56 (Vitamin D3) 5,000 units DAILY PO 01/26/17 09:30 01/26/17 10:02 Family History Noncontributory Social History Denies smoking or alcohol Physical Exam Vital Signs Vital Signs Date Time Temp Pulse Resp B/P Pulse Ox O2 Delivery O2 Flow Rate FiO2 01/26/17 12:16 98.2 76 18 148/79 95 01/26/17 08:00 97.3 70 18 146/67 94 01/26/17 04:30 97.4 74 20 171/72 96 01/26/17 00:56 98.5 63 18 139/67 96 01/25/17 23:08 67 01/25/17 20:00 98.2 79 20 144/71 97 01/25/17 16:25 98.2 72 20 135/72 93 Physical Exam GENERAL: Well-nourished, well-developed patient. SKIN: Warm and dry. HEAD: Normocephalic. EYES: No scleral icterus. No injection or drainage. NECK: Supple, trachea midline. No JVD or lymphadenopathy. CARDIOVASCULAR: Regular rate and rhythm without murmurs, gallops, or rubs. AICD in place RESPIRATORY: Breath sounds equal bilaterally. No accessory muscle use. GASTROINTESTINAL: Abdomen soft, non-tender, nondistended. EXTREMITIES: No cyanosis, or edema. NEUROLOGICAL: Awake, alert, and oriented x 3. Non-focal. Laboratory Laboratory Tests Test 01/25/17 01/26/17 16:30 05:26 Nasal Screen MRSA (PCR) MRSA NOT DETECTED White Blood Count 7.6 Red Blood Count 4.08 Hemoglobin 11.8 Hematocrit 35.0 Mean Corpuscular Volume 85.8 Mean Corpuscular Hemoglobin 28.9 Mean Corpuscular Hemoglobin 33.7 Concent Red Cell Distribution Width 14.0 Platelet Count 320 Mean Platelet Volume 7.8 Neutrophils (%) (Auto) 64.2 Lymphocytes (%) (Auto) 22.6 Monocytes (%) (Auto) 8.8 Eosinophils (%) (Auto) 3.4 Basophils (%) (Auto) 1.0 Neutrophils # (Auto) 4.9 Lymphocytes # (Auto) 1.7 Monocytes # (Auto) 0.7 Eosinophils # (Auto) 0.3 Basophils # (Auto) 0.1 CBC Comment DIFF FINAL Differential Comment Sodium Level 141 Potassium Level 4.5 Chloride Level 112 Carbon Dioxide Level 19.3 Anion Gap 10 Blood Urea Nitrogen 56 Creatinine 2.13 Estimat Glomerular Filtration 23 Rate Random Glucose 117 Calcium Level 9.2 Triglycerides Level 210 Cholesterol Level 124 LDL Cholesterol 50 HDL Cholesterol 32.3 Cholesterol/HDL Ratio 3.83 25-Hydroxy Vitamin D Total 7.4 Result Diagram: 01/26/1752501/26/17525 Imaging Last Impressions Abdomen/Pelvis CT 01/24/172052 Signed Impressions: Service Date/Time: Tuesday, January 24, 2017 21:46 - CONCLUSION: 1. Small nonobstructing renal calculi. 2. Bilateral stable adrenal adenomas. 3. Small hiatal hernia. 4. Moderate amount of stool in the distal colon. Matthias Kimball MD Chest X-Ray 01/24/171904 Signed Impressions: Service Date/Time: Tuesday, January 24, 2017 19:03 - CONCLUSION: No acute disease. Matthias Kimball MD Assessment and Plan Problem List: (1) Acute renal failure Plan: Medications due to dehydration since she is having eating better she has a good response we can cautiously hydrate her and follow BMP Appears to be prerenal in etiology. Check urine analysis and cultures, urine sodium, urine protein to creatinine ratio IV fluid half normal saline with 50 mEq/L of sodium bicarbonate at 83 cc an hour Avoid Nephrotoxic medications (2) AICD (automatic cardioverter/defibrillator) present Plan: Continue to monitor (3) Abdominal pain Plan: Resolved (4) Diabetes mellitus Plan: Continue to monitor Problem Qualifiers (1) Acute renal failure: Qualified Code: N17.9 - Acute renal failure, unspecified acute renal failure type (2) Abdominal pain: Qualified Code: R10.13 - Epigastric pain Ruddy Mathews MD Jan 26, 2017 14:01
[2017-01-26 15:28] LABS: BACTERIA, URINE MANY /hpf; BLOOD, URINE NEG (NEG); GLUCOSE,URINE NEG (NEG); KETONE, URINE NEG (NEG); MUCUS URINE FEW /lpf (OCC); NITRITE,URINE NEG (NEG); URINE COLOR LIGHT-YELLOW (YELLW/STRAW)
[2017-01-26 15:32] LABS: COMMENT (UR) CATH-CULTURE IND; CULTURE IF INDICATED CATH CULTURE IND
[2017-01-26] MEDS: SODIUM BICARBONATE 8.4% INJ 50 MEQ in SODIUM CHLOR 0.45% 1000 ML INJ 1,000 ML IV SCH (16:17)
[2017-01-26 18:47] LABS: HEMOGLOBIN A1a 1.3 %; HEMOGLOBIN A1b 2.3 %; HEMOGLOBIN Ao 82.4 %; HEMOGLOBIN LA1C 2.5 %; HEMOGLOBIN P3 6.7 %
[2017-01-26] MEDS: DOCUSATE SODIUM 50 MG/SENNA 8.6 MG TAB PO SCH (21:00)
[2017-01-26] MEDS: PRAVASTATIN SOD 10 MG TAB PO SCH (21:00)
[2017-01-27 04:00] VITALS: BP 165/69; PULSE 67; RESP 17; TEMP 97.4; O2SAT 95
[2017-01-27] MEDS: SODIUM BICARBONATE 8.4% INJ 50 MEQ in SODIUM CHLOR 0.45% 1000 ML INJ 1,000 ML IV SCH ×2 (04:40→14:32)
[2017-01-27 05:44] LABS: AUTOMATED NEUTROPHIL # 4.4 TH/MM3 (1.8-7.7); BASOPHIL # 0.1 TH/MM3 (0-0.2); BASOPHIL % 0.9 % (0.0-2.0); EOSINOPHIL # 0.2 TH/MM3 (0-0.4); HEMATOCRIT 34.9 % (35.0-46.0); HEMO FLAGS DIFF FINAL; LYMPH % 23.4 % (9.0-44.0); LYMPHOCYTE # 1.6 TH/MM3 (1.0-4.8); MEAN CELL VOLUME 85.9 FL (80.0-100.0); MEAN CORPUSCULAR HEMOGLOBIN 28.6 PG (27.0-34.0); MEAN CORPUSCULAR HGB CONC 33.3 % (32.0-36.0); MONO % 8.8 % (0.0-8.0); NEUT % 63.9 % (16.0-70.0); PLATELET COUNT 294 TH/MM3 (150-450); RED BLOOD COUNT 4.06 MIL/MM3 (4.00-5.30); RED CELL DISTRIBUTION WIDTH 13.8 % (11.6-17.2); WHITE BLOOD COUNT 6.9 TH/MM3 (4.0-11.0)
[2017-01-27] MEDS: INSULIN ASPART SUPPLEMENTAL SCALE SQ SCH ×4 (05:54→21:32)
[2017-01-27 06:08] LABS: BICARBONATE 22.6 MEQ/L (21.0-32.0); POTASSIUM 4.1 MEQ/L (3.5-5.1)
[2017-01-27 08:00] VITALS: BP 116/58; PULSE 70; RESP 17; TEMP 97.3; O2SAT 98
[2017-01-27] MEDS: amLODIPine BESYLATE 5 MG TAB PO SCH (09:00)
[2017-01-27] MEDS: CHOLECALCIFEROL (VIT D3) 5000 UNIT CAP PO SCH (09:00)
[2017-01-27] MEDS: SODIUM CHLORIDE 0.9% FLUSH 10 ML FLUSH IV FLUSH SCH ×2 (09:00→20:44)
[2017-01-27] MEDS: CARVEDILOL 3.125 MG TAB PO SCH ×2 (09:00→20:43)
[2017-01-27] MEDS: FUROSEMIDE 20 MG TAB PO SCH (09:00)
[2017-01-27] MEDS: SPIRONOLACTONE 25 MG TAB PO SCH ×2 (09:00→20:43)
[2017-01-27] MEDS: PANTOPRAZOLE SOD 40 MG DELAYED RELEASE TAB PO SCH (09:00)
[2017-01-27] MEDS: ENOXAPARIN SODIUM 30 MG/0.3 ML SYRINGE SQ SCH (10:00)
[2017-01-27] MEDS ORDERED: LEVOFLOXACIN 250 MG PREMIX INJ 50 ML IV ONE (11:15)
[2017-01-27 12:00] VITALS: BP 139/69; PULSE 79; RESP 17; TEMP 96.9; O2SAT 96
--- NOTE | 2017-01-27 12:11 | HHI.GIFU ---
Subjective Remarks Resting in bed. Denies any abdominal pain, nausea, vomiting, heartburn, reflux , bowel issues, or bleeding. Does not wish to pursue any endoscopic evaluation as inpatient. Tolerating diet. Objective Vitals I&O Vital Signs Date Time Temp Pulse Resp B/P Pulse Ox O2 Delivery O2 Flow Rate FiO2 01/27/17 08:00 97.3 70 17 116/58 98 01/27/17 04:00 97.4 67 17 165/69 95 01/26/17 20:00 96.9 74 17 177/79 94 01/26/17 19:40 77 01/26/17 16:18 97.4 74 20 141/77 95 01/26/17 12:16 98.2 76 18 148/79 95 I/O 01/26/17 01/26/17 01/26/17 01/27/17 01/27/17 01/27/17 07:00 15:00 23:00 07:00 15:00 23:00 Intake Total 240 ml 720 ml 454 ml 240 ml Output Total 0 ml Balance 240 ml 720 ml 454 ml 240 ml Intake Oral 240 ml 720 ml 240 ml 240 ml IV Total 214 ml Output Urine Total 0 ml # Voids 5 2 2 # Bowel Movements 1 Laboratory Laboratory Tests Test 01/26/17 01/27/17 01/27/17 15:10 04:35 04:55 Urine Color LIGHT-YELLOW Urine Turbidity HAZY Urine pH 5.0 Urine Specific [place] 1.008 Urine Protein 30 Urine Glucose (UA) NEG Urine Ketones NEG Urine Occult Blood NEG Urine Nitrite NEG Urine Bilirubin NEG Urine Urobilinogen LESS THAN 2.0 Urine Leukocyte Esterase LARGE Urine RBC 3 Urine WBC 57 Urine WBC Clumps RARE Urine Amorphous Sediment RARE Urine Bacteria MANY Urine Mucus FEW Microscopic Urinalysis Comment CATH-CULTURE IND Urine Random Creatinine 28 Urine Random Total Protein 43 Urine Random Sodium 100 Urine Protein/Creatinine Ratio 1.54 Sodium Level 142 Potassium Level 4.1 Chloride Level 110 Carbon Dioxide Level 22.6 Anion Gap 9 Blood Urea Nitrogen 58 Creatinine 2.14 Estimat Glomerular Filtration 23 Rate Random Glucose 134 Calcium Level 9.3 White Blood Count 6.9 Red Blood Count 4.06 Hemoglobin 11.6 Hematocrit 34.9 Mean Corpuscular Volume 85.9 Mean Corpuscular Hemoglobin 28.6 Mean Corpuscular Hemoglobin 33.3 Concent Red Cell Distribution Width 13.8 Platelet Count 294 Mean Platelet Volume 8.0 Neutrophils (%) (Auto) 63.9 Lymphocytes (%) (Auto) 23.4 Monocytes (%) (Auto) 8.8 Eosinophils (%) (Auto) 3.0 Basophils (%) (Auto) 0.9 Neutrophils # (Auto) 4.4 Lymphocytes # (Auto) 1.6 Monocytes # (Auto) 0.6 Eosinophils # (Auto) 0.2 Basophils # (Auto) 0.1 CBC Comment DIFF FINAL Differential Comment Date/Time Procedure Status Source Growth 01/26/17 15:10 Urine Culture Received Urine Catheterized Urine Pending Imaging Last Impressions Abdomen/Pelvis CT 01/24/172052 Signed Impressions: Service Date/Time: Tuesday, January 24, 2017 21:46 - CONCLUSION: 1. Small nonobstructing renal calculi. 2. Bilateral stable adrenal adenomas. 3. Small hiatal hernia. 4. Moderate amount of stool in the distal colon. Matthias Kimball MD Chest X-Ray 01/24/17 190 Signed Impressions: Service Date/Time: Tuesday, January 24, 2017 19:03 - CONCLUSION: No acute disease. Matthias Kimball MD Physical Exam HEENT: Normocephalic; atraumatic; no jaundice. CHEST: CTA CARDIAC: RRR ABDOMEN: Soft, nondistended, nontender; no hepatosplenomegaly; bowel sounds are present in all four quadrants. EXTREMITIES: No clubbing, cyanosis, or edema. SKIN: Normal; no rash; no jaundice. BOARD TURNER: No focal deficits; alert and oriented times three. Assessment and Plan Plan ASSESSMENT - Epigastric pain, RESOLVED. S/P EGD/Colonoscopy (11/13/16)----> medium sized ulcer was found at the gastroesophageal junction, biopsies were taken, there was a short stricture at the gastroesophageal junction, retroflexed views revealed no abnormalities. Very poor colon prep with hard stools, obscuring visualization, retroflexion was not performed. It was recommended that she have a repeat colonoscopy, but refused. She does not recall having done as outpatient. She is no longer having any GI symptoms and does not want to have any endoscopic procedures as inpatient. D/W patient importance of having done at some point for follow up of ulcer and colorectal cancer screening. She would like to have done as outpatient and refuses to have done inpatient. - ARF on CKD. Creat 2.14. Renal following. - Abn. U/A, Cx pending. Levaquin was ordered but patient is refusing. - Severe CMP, occluded right coronary artery. Has AICD. Cardiology following. - AICD - per cardiology defibrillator is going to be checked. PLAN - KAILYN - PPI - Monitor labs - Supportive care - Refusing GI workup, states she is now asymptomatic. D/W patient outpatient EGD/Colonoscopy for follow up of ulcer and colorectal cancer screening- verbalizes understanding - FU MARITO in 2 weeks - Pt seen and examined by Dr. Segal and myself and this note is written on his behalf Juanita Huggins Jan 27, 2017 12:11
--- NOTE | 2017-01-27 14:14 | HHI.PR ---
Subjective Remarks Patient resting comfortable. Denies any pain. IVF infusing Objective Vital Signs Date Time Temp Pulse Resp B/P Pulse Ox O2 Delivery O2 Flow Rate FiO2 01/27/17 12:00 96.9 79 17 139/69 96 01/27/17 08:00 97.3 70 17 116/58 98 01/27/17 04:00 97.4 67 17 165/69 95 01/26/17 20:00 96.9 74 17 177/79 94 01/26/17 19:40 77 01/26/17 16:18 97.4 74 20 141/77 95 I/O 01/26/17 01/26/17 01/26/17 01/27/17 01/27/17 01/27/17 07:00 15:00 23:00 07:00 15:00 23:00 Intake Total 240 ml 720 ml 454 ml 240 ml Output Total 0 ml Balance 240 ml 720 ml 454 ml 240 ml Intake Oral 240 ml 720 ml 240 ml 240 ml IV Total 214 ml Output Urine Total 0 ml # Voids 5 2 2 # Bowel Movements 1 Result Diagram: 01/27/17 0455 01/27/17 0435 Imaging Last 72 hours Impressions Abdomen/Pelvis CT 01/24/172052 Signed Impressions: Service Date/Time: Tuesday, January 24, 2017 21:46 - CONCLUSION: 1. Small nonobstructing renal calculi. 2. Bilateral stable adrenal adenomas. 3. Small hiatal hernia. 4. Moderate amount of stool in the distal colon. Matthias Kimball MD Chest X-Ray 01/24/17 1905 Signed Impressions: Service Date/Time: Tuesday, January 24, 2017 19:03 - CONCLUSION: No acute disease. Matthias Kimball MD Objective Remarks GENERAL: Alert not oriented SKIN: Warm and dry. HEAD: Normocephalic. EYES: No scleral icterus. No injection or drainage. NECK: Supple, trachea midline. No JVD or lymphadenopathy. CARDIOVASCULAR: Regular rate and rhythm without murmurs, gallops, or rubs. RESPIRATORY: Breath sounds equal bilaterally. No accessory muscle use. GASTROINTESTINAL: Abdomen soft, non-tender, nondistended. MUSCULOSKELETAL: No cyanosis, or edema. BACK: Nontender without obvious deformity. No CVA tenderness. Medications and IVs Current Medications Medications (Trade) Dose Ordered Sig/Liliya Route Start Time Stop Time Status Last Admin (NS Flush) 2 ml UNSCH PRN IV FLUSH 01/24/17 22:15 01/26/17 16:17 (NS Flush) 2 ml BID IV FLUSH 01/25/17 09:00 01/26/17 08:55 (Narcan Inj) 0.4 mg UNSCH PRN IV 01/24/17 22:15 (Tylenol) 650 mg Q4H PRN PO 01/25/17 09:15 (Norvasc) 5 mg DAILY PO 01/26/17 09:00 01/26/17 08:56 (Coreg) 3.125 mg BID PO 01/25/17 21:00 01/26/17 08:56 (Lasix) 20 mg DAILY PO 01/26/17 09:00 01/26/17 08:56 (Pravachol) 10 mg HS PO 01/25/17 21:00 01/25/17 21:29 (Aldactone) 25 mg BID PO 01/25/17 21:00 01/26/17 08:56 (Lovenox Inj) 30 mg Q24H SQ 01/25/17 10:00 01/26/17 10:03 (D50w (Vial) Inj) 50 ml UNSCH PRN IV 01/25/17 10:00 (Glucagon Inj) 1 mg UNSCH PRN OTHER 01/25/17 10:00 (Marine-Colace) 2 tab HS PO 01/25/17 21:00 01/25/17 21:29 (Protonix) 40 mg DAILY PO 01/26/17 09:00 01/26/17 08:56 Cholecalciferol 5000 units 5,000 units DAILY PO 01/26/17 09:30 01/26/17 10:02 (Sodium Bicarbonate 8.4% Inj/1/2 NS 1000 ml Inj) 1,050 ml @ 83 mls/hr [id number] IV 01/26/17 16:00 01/26/17 16:17 Assessment and Plan Problem List: (1) Abdominal pain Status: Acute Plan: GI consulted and cleared for discharge from their stand point. CT of abdomen and pelvis with nonobstructing renal calculi. 2. Bilateral stable adrenal adenomas. 3. Small hiatal hernia. 4. Moderate amount of stool in the distal colon Denies and abdominal pain and no tenderness noted. She does have hx ulcer, had EGD/colonoscopy 2016 --> med size ulcer GE junction, stricture (2) Chest pain, rule out acute myocardial infarction Status: Acute Plan: Denies chest pain Mildly elevated troponin at .06 and .07 could be related to CKD however will consult cardiology with patient significant heart disease occluded right coronary artery - per cardiology AICD - per cardiology defibrillator is going to be checked (3) Hypertension Status: Acute Plan: continue current therapy will monitor (4) Diabetes mellitus Status: Acute Plan: BS ordered AC and HS with SS . Metformin on hold. Adriana added BS [id number] 321 (5) CKD (chronic kidney disease) stage 4, GFR 15-29 ml/min Status: Acute Plan: GFR 23. Bun and Creat stable. Nephrology consulted and mangeing. IVF ordered yesterday 1/2 NS with bicarb at 50 ml per hour (6) Vitamin D deficiency Status: Acute Plan: Replacement added Assessment and Plan Assessment and plan discussed with Dr. Muir Discussed Condition With Nursing Discharge Planning Home with [facility] Physician Attestation I and the PLANNER SCHEDULER have both examined this patient and reviewed this note and I agree with these findings and plan of care. James Muir DO Problem Qualifiers (1) Abdominal pain: Qualified Code: R10.13 - Epigastric pain Eva Sosa Jan 27, 2017 14:13
[2017-01-27 16:00] VITALS: BP 170/80; PULSE 82; RESP 17; TEMP 97.2; O2SAT 95
--- NOTE | 2017-01-27 16:33 | HHI.NPPN ---
Subjective History of Present Illness 66 Year old with ARF UTI refusing IV Review of Systems General Constitutional: Fatigue Objective Data Data 01/26/17 01/27/17 19:00 07:00 Intake Total 720 ml 694 ml Balance 720 ml 694 ml Intake Oral 720 ml 480 ml IV Total 214 ml # Voids 5 4 # Bowel Movements 1 Vital Signs Date Time Temp Pulse Resp B/P Pulse Ox O2 Delivery O2 Flow Rate FiO2 01/27/17 12:00 96.9 79 17 139/69 96 01/27/17 08:00 97.3 70 17 116/58 98 01/27/17 04:00 97.4 67 17 165/69 95 01/26/17 20:00 96.9 74 17 177/79 94 01/26/17 19:40 77 -: 01/27/17 0455 01/27/17 0435 Physical Exam General Appearance: Well Developed, Well Nourished Neck Neck Exam: Neck Supple Pulmonary Resp Exam: Clear Bilaterally, Breath Sounds Equal Cardiology CV Exam: Regular, Normal Sinus Rhythm Gastrointestinal/Abdomen GI Exam: Soft, Non-Tender, Bowel Sounds Present Extremeties Extremities Exam: No Edema Assessment/Plan Problem List: (1) Acute renal failure Plan: Medications due to dehydration since she is having eating better she has a good response we can cautiously hydrate her and follow BMP Appears to be prerenal in etiology. UTI Gram negative in urine Levaquin given she can be dc on Levaquin orally or cipro (2) AICD (automatic cardioverter/defibrillator) present Plan: Continue to monitor (3) Abdominal pain Plan: Resolved (4) Diabetes mellitus Plan: Continue to monitor Problem Qualifiers (1) Acute renal failure: Qualified Code: N17.9 - Acute renal failure, unspecified acute renal failure type (2) Abdominal pain: Qualified Code: R10.13 - Epigastric pain Ruddy Mathews MD Jan 27, 2017 16:32
[2017-01-27 20:00] VITALS: BP 161/76; PULSE 78; RESP 18; TEMP 97.1; O2SAT 95
[2017-01-27] MEDS: DOCUSATE SODIUM 50 MG/SENNA 8.6 MG TAB PO SCH (20:43)
[2017-01-27] MEDS: PRAVASTATIN SOD 10 MG TAB PO SCH (20:43)
[2017-01-28] VITALS: BP 124/80; PULSE 70; RESP 18; TEMP 98.1; O2SAT 96
[2017-01-28] MEDS: INSULIN ASPART SUPPLEMENTAL SCALE SQ SCH ×4 (05:01→21:00)
[2017-01-28 07:41] LABS: AUTOMATED NEUTROPHIL # 4.5 TH/MM3 (1.8-7.7); BASOPHIL # 0.1 TH/MM3 (0-0.2); BASOPHIL % 1.2 % (0.0-2.0); EOSINOPHIL # 0.3 TH/MM3 (0-0.4); EOSINOPHIL % 3.9 % (0.0-4.0); HEMATOCRIT 33.7 % (35.0-46.0); HEMO FLAGS DIFF FINAL; LYMPH % 25.3 % (9.0-44.0); LYMPHOCYTE # 1.9 TH/MM3 (1.0-4.8); MEAN CELL VOLUME 85.4 FL (80.0-100.0); MEAN CORPUSCULAR HEMOGLOBIN 28.7 PG (27.0-34.0); MEAN CORPUSCULAR HGB CONC 33.6 % (32.0-36.0); MONO % 9.2 % (0.0-8.0); NEUT % 60.4 % (16.0-70.0); PLATELET COUNT 303 TH/MM3 (150-450); RED BLOOD COUNT 3.94 MIL/MM3 (4.00-5.30); RED CELL DISTRIBUTION WIDTH 13.9 % (11.6-17.2); WHITE BLOOD COUNT 7.5 TH/MM3 (4.0-11.0)
[2017-01-28 08:00] VITALS: BP 129/60; PULSE 63; RESP 16; TEMP 96.9; O2SAT 97
[2017-01-28 08:04] LABS: BICARBONATE 22.5 MEQ/L (21.0-32.0); POTASSIUM 4.6 MEQ/L (3.5-5.1)
[2017-01-28] MEDS: PANTOPRAZOLE SOD 40 MG DELAYED RELEASE TAB PO SCH (08:58)
[2017-01-28] MEDS: SPIRONOLACTONE 25 MG TAB PO SCH ×2 (08:58→20:30)
[2017-01-28] MEDS: FUROSEMIDE 20 MG TAB PO SCH (08:59)
[2017-01-28] MEDS: amLODIPine BESYLATE 5 MG TAB PO SCH (08:59)
[2017-01-28] MEDS: CARVEDILOL 3.125 MG TAB PO SCH ×2 (08:59→20:30)
[2017-01-28] MEDS: CHOLECALCIFEROL (VIT D3) 5000 UNIT CAP PO SCH (09:00)
[2017-01-28] MEDS: SODIUM CHLORIDE 0.9% FLUSH 10 ML FLUSH IV FLUSH SCH ×2 (09:00→20:30)
[2017-01-28] MEDS ORDERED: CIPROFLOXACIN 250 MG TAB PO SCH (09:00)
[2017-01-28] MEDS: ENOXAPARIN SODIUM 30 MG/0.3 ML SYRINGE SQ SCH (09:01)
--- NOTE | 2017-01-28 11:13 | RADRPT ---
EXAM DATE/TIME: 01/28/2017 10:45 [facility] COMPARISON: CT BRAIN W/O CONTRAST, November 13, 2015, 6:44. INDICATIONS : Altered mental status. RADIATION DOSE: 56.38 CTDIvol (mGy) MEDICAL HISTORY : Dementia. Cardiovascular disease SURGICAL HISTORY : None. ENCOUNTER: Initial ACUITY: 1 day PAIN SCALE: 0/10 LOCATION: cranial TECHNIQUE: Multiple contiguous axial images were obtained of the head. Using automated exposure control and adj ustment of the mA and/or kV according to patient size, radiation dose was kept as low as reasonably a chievable to obtain optimal diagnostic quality images. DICOM format image data is available electro nically for review and comparison. FINDINGS: CEREBRUM: Atrophy. Small chronic lacunar infarction involving left basal ganglia. The ventricles are normal for age. No evidence of midline shift, mass lesion, hemorrhage or acute infarction. No extra-axial flu id collections are seen. POSTERIOR FOSSA: The cerebellum and brainstem are intact. The 4th ventricle is midline. The cerebellopontine angle i s unremarkable. EXTRACRANIAL: The visualized portion of the orbits is intact. SKULL: The calvaria is intact. No evidence of skull fracture. CONCLUSION: No acute disease. James Carlos Jr., MD on January 28, 2017 at 10:59 Board Certified Radiologist. This report was verified electronically.
--- NOTE | 2017-01-28 11:30 | MB ---
cc: KASSIE BACA DATE OF CONSULTATION 01/28/2017 REASON FOR CONSULTATION Altered mental status. HISTORY OF PRESENT ILLNESS Ms. Woodson is a 66-year-old female who presented to the [facility] Emergency Department because of abdominal pain and discomfort. The patient is a poor historian. She has undergone several investigations but she was noted yesterday as per registered nurse to refuse her medication and she did not want IV fluid. The RN called her son and he stated that she is at baseline demented and he takes care of her and he prepares her medication. She does not really do much at home other than sits and watches TV and eats. During the encounter the patient was pleasant, eating her breakfast. She was only oriented to place. Denies headache, double vision, lightheadedness, weakness of extremity or speech difficulty. No reported seizure activity, disorientation or blackout during this hospital stay. No reported head injury. REVIEW OF SYSTEMS A 12-point review of systems was negative except for what is stated in the HPI. PAST MEDICAL HISTORY 1. Chronic systolic congestive heart failure. 2. Cardiomyopathy. 3. Coronary artery disease. 4. Dementia. 5. Hypertension. 6. Hyperlipidemia. 7. Anxiety with depression. 8. Acid reflux. 9. Diabetes. 10. Fibromyalgia. 11. Sleep apnea. 12. Peripheral neuropathy. 13. Abdominal cellulitis and abscess related to MRSA, January 2015. 14. Symptomatic anemia requiring blood transfusion October 2015. PAST SURGICAL HISTORY 1. Bilateral hernia repair. 2. AICD placement. 3. Vaginal surgery. 4. Breast augmentation and reversal. 5. History of cardiac catheterization . MEDICATIONS 1. Amlodipine. 2. Carvedilol. 3. Cholecalciferol. 4. Furosemide. 5. Pantoprazole. 6. Pravastatin. 7. Spironolactone. SOCIAL HISTORY Lives with her son. Quit smoking in 2013. Denies alcohol use or drug abuse. FAMILY HISTORY Noncontributory. PHYSICAL EXAMINATION GENERAL: Awake, alert, pleasant, calm, not in acute apparent distress. HEENT: Atraumatic, normocephalic. Intact hearing. Intact vision. RESPIRATORY: Clear to auscultation. No wheezes. CARDIOVASCULAR: Regular rate and rhythm. GASTROINTESTINAL: Soft abdomen. MUSCULOSKELETAL: Extremities without cyanosis, edema or clubbing. NEUROLOGICAL: Awake, alert, oriented to place (hospital in [place]). Not oriented to time, year, day or date. Unaware of the name of the President. Intact speech content. Intact naming, repetition. No dysarthria. No dysphagia. Flat mood and affect. Cranial nerve examination II-XII are grossly intact. Upper and lower extremities are grossly 5/5 with intact cerebellar function and intact sensation. PSYCHIATRIC: flat affect. No hallucination. DIAGNOSTIC IMAGING - I reviewed diagnostic imaging of the head CT scan that was done on 11/13/2015 that revealed marked atrophy mainly in the bilateral frontal region with dilatation of the ventricle and a remote small parietal infarct. - MRI of on 10/28/2012 revealed a left mid-parietal subcortical white matter subacute infarct with mild periventricular white matter small vessel disease, left basal ganglia, old lacunar infarct. Diffuse ischemic changes with mild cerebral atrophy. Tiny left cerebellar hemisphere. - Head CTA on 05/12/2019 was reported with occlusion of right ICA shortly after the bifurcation with prominent collaterals, no aneurysms. - Neck CTA in 2008 - Right ICA occlusion, 5-mm after its origin. Left ICA. Mild to moderate stenosis of 30-40% stenosis. DIAGNOSTIC IMPRESSIONS 1. History of dementia. 2. Mild anxiety. 3. Congestive heart failure. 4. Coronary artery disease. 5. Hypertension. 6. Hyperlipidemia. 7. Sleep apnea. 8. History of carotid artery disease status post review of medical records. PLAN 1. Neuro checks q. 4 hours. 2. Followup head CT scan without contrast. 3. DVT prophylaxis. 4. Fall precautions. 5. Avoid major tranquilizers. 6. Supportive medical therapy Thank you for the opportunity to participate in care of your patient. MD CHIDI Lobo/MICAH /10:25 AM /11:08 AM PAMELLA
[2017-01-28 12:00] VITALS: BP 179/86; PULSE 72; RESP 17; TEMP 96.3; O2SAT 97
--- NOTE | 2017-01-28 12:54 | HHI.PR ---
Subjective Remarks Patient resting comfortable. Denies any pain. Oriented to self Objective Vital Signs Date Time Temp Pulse Resp B/P Pulse Ox O2 Delivery O2 Flow Rate FiO2 01/28/17 12:00 96.3 72 17 179/86 97 01/28/17 08:00 96.9 63 16 129/60 97 01/28/17 00:00 98.1 70 18 124/80 96 01/27/17 20:00 97.1 78 18 161/76 95 01/27/17 16:00 97.2 82 17 170/80 95 I/O 01/27/17 01/27/17 01/27/17 01/28/17 01/28/17 01/28/17 07:00 15:00 23:00 07:00 15:00 23:00 Intake Total 240 ml 600 ml 240 ml 120 ml Balance 240 ml 600 ml 240 ml 120 ml Intake Oral 240 ml 600 ml 240 ml 120 ml IV Total 0 ml # Voids 2 2 2 2 # Bowel Movements 0 Result Diagram: 01/28/17 0703 01/28/17 0703 Imaging Last [address] 01/28/17 0000 Signed Impressions: Service Date/Time: January 10:45 - CONCLUSION: No acute disease. James Carlos Jr., MD Objective Remarks GENERAL: Alert not oriented SKIN: Warm and dry. HEAD: Normocephalic. EYES: No scleral icterus. No injection or drainage. NECK: Supple, trachea midline. No JVD or lymphadenopathy. CARDIOVASCULAR: Regular rate and rhythm without murmurs, gallops, or rubs. RESPIRATORY: Breath sounds equal bilaterally. No accessory muscle use. GASTROINTESTINAL: Abdomen soft, non-tender, nondistended. MUSCULOSKELETAL: No cyanosis, or edema. BACK: Nontender without obvious deformity. No CVA tenderness. Medications and IVs Current Medications Medications (Trade) Dose Ordered Sig/Liliya Route Start Time Stop Time Status Last Admin (NS Flush) 2 ml UNSCH PRN IV FLUSH 01/24/17 22:15 01/26/17 16:17 (NS Flush) 2 ml BID IV FLUSH 01/25/17 09:00 01/26/17 08:55 (Narcan Inj) 0.4 mg UNSCH PRN IV 01/24/17 22:15 (Tylenol) 650 mg Q4H PRN PO 01/25/17 09:15 (Norvasc) 5 mg DAILY PO 01/26/17 09:00 01/28/17 08:59 (Coreg) 3.125 mg BID PO 01/25/17 21:00 01/28/17 08:59 (Lasix) 20 mg DAILY PO 01/26/17 09:00 01/28/17 08:59 (Pravachol) 10 mg HS PO 01/25/17 21:00 01/25/17 21:29 (Aldactone) 25 mg BID PO 01/25/17 21:00 01/28/17 08:58 (Lovenox Inj) 30 mg Q24H SQ 01/25/17 10:00 01/26/17 10:03 (D50w (Vial) Inj) 50 ml UNSCH PRN IV 01/25/17 10:00 (Glucagon Inj) 1 mg UNSCH PRN OTHER 01/25/17 10:00 (Marine-Colace) 2 tab HS PO 01/25/17 21:00 01/25/17 21:29 (Protonix) 40 mg DAILY PO 01/26/17 09:00 01/28/17 08:58 (Vitamin D3) 5,000 units DAILY PO 01/26/17 09:30 01/28/17 09:00 (Cipro) 250 mg Q18H PO 01/29/17 03:00 Assessment and Plan Problem List: (1) Abdominal pain Status: Acute Plan: GI consulted and cleared for discharge from their stand point. CT of abdomen and pelvis with nonobstructing renal calculi. 2. Bilateral stable adrenal adenomas. 3. Small hiatal hernia. 4. Moderate amount of stool in the distal colon Continues to deny and abdominal pain and no tenderness noted. She does have hx ulcer, had EGD/colonoscopy 2016 --> med size ulcer GE junction, stricture (2) Chest pain, rule out acute myocardial infarction Status: Acute Plan: Denies chest pain Mildly elevated troponin at .06 and .07 could be related to CKD however will consult cardiology with patient significant heart disease occluded right coronary artery - per cardiology AICD - per cardiology defibrillator is going to be checked Cleared per cardiology for discharge (3) Hypertension Status: Acute Plan: B/P elevated will increase Amlodipine. (4) Diabetes mellitus Status: Acute Plan: BS ordered AC and HS with SS . Metformin on hold. BS labile. Januvia added yesterday will resume metformin at discharge (5) CKD (chronic kidney disease) stage 4, GFR 15-29 ml/min Status: Acute Plan: GFR 23. Bun and Creat stable. Nephrology consulted and managing. Patient pulled IV out will keep out (6) Vitamin D deficiency Status: Acute Plan: Replacement added (7) Altered mental status, unspecified Status: Acute Plan: Neurology consulted. Head CT with no acute findings Per nursing family feels patient is at her baseline. (8) UTI (urinary tract infection) Status: Acute Plan: On ciprofloxacin for UTI made need to change based on sensitivities Assessment and Plan Assessment and plan discussed with Dr. Muir Discussed Condition With Nursing Discharge Planning Home with [facility] Physician Attestation I and the INFORMATION SYSTEMS SECURITY SPECIALIST have both examined this patient and reviewed this note and I agree with these findings and plan of care. James Muir DO Problem Qualifiers (1) Abdominal pain: Qualified Code: R10.13 - Epigastric pain Eva Sosa Jan 28, 2017 12:54
[2017-01-28] MEDS: SULFAMETHOXAZOLE-TRIMETHOPRIM 400-80 MG TAB PO SCH (14:08)
[2017-01-28 16:00] VITALS: BP 134/79; PULSE 75; RESP 17; TEMP 96.9; O2SAT 96
[2017-01-28 20:20] VITALS: BP 122/74; PULSE 73; RESP 16; TEMP 97.4; O2SAT 93
[2017-01-28] MEDS: DOCUSATE SODIUM 50 MG/SENNA 8.6 MG TAB PO SCH (20:29)
[2017-01-28] MEDS: PRAVASTATIN SOD 10 MG TAB PO SCH (20:30)
[2017-01-29 00:29] VITALS: BP 134/63; PULSE 70; RESP 17; TEMP 97.1; O2SAT 98
[2017-01-29] MEDS ORDERED: CIPROFLOXACIN 250 MG TAB PO SCH (03:00)
[2017-01-29] MEDS: INSULIN ASPART SUPPLEMENTAL SCALE SQ SCH ×3 (06:31→16:00)
[2017-01-29 08:00] VITALS: BP 164/70; PULSE 62; RESP 18; TEMP 96.8; O2SAT 94
[2017-01-29] MEDS: SODIUM CHLORIDE 0.9% FLUSH 10 ML FLUSH IV FLUSH SCH (09:00)
[2017-01-29] MEDS: CHOLECALCIFEROL (VIT D3) 5000 UNIT CAP PO SCH (09:00)
[2017-01-29] MEDS: FUROSEMIDE 20 MG TAB PO SCH (09:17)
[2017-01-29] MEDS: SULFAMETHOXAZOLE-TRIMETHOPRIM 400-80 MG TAB PO SCH (09:17)
[2017-01-29] MEDS: CARVEDILOL 3.125 MG TAB PO SCH (09:17)
[2017-01-29] MEDS: PANTOPRAZOLE SOD 40 MG DELAYED RELEASE TAB PO SCH (09:17)
[2017-01-29] MEDS: SPIRONOLACTONE 25 MG TAB PO SCH (09:18)
[2017-01-29] MEDS: ENOXAPARIN SODIUM 30 MG/0.3 ML SYRINGE SQ SCH (09:20)
[2017-01-29 12:00] VITALS: BP 132/66; PULSE 70; RESP 16; TEMP 96.2; O2SAT 92
[2017-01-29] MEDS ORDERED: CHOL5000 PO (13:02)
[2017-01-29] MEDS ORDERED: PANT40TA3 PO (13:02)
[2017-01-29] MEDS ORDERED: AMLO10 PO (13:02)
[2017-01-29] MEDS ORDERED: SULF1TAB58 PO (13:02)
--- NOTE | 2017-01-29 13:12 | HHI.DS ---
Discharge Summary Admission Date Jan 24, 2017 at 21:25 Admitting Diagnosis Midepigastric abdominal pain, Cp R/O [place] Brief History The patient is a 66 year old female who presents to the [facility] emergency department with midepigastric abdominal pain and chest discomfort. . Patient is a poor historian and information has been obtained through chart. Abdomen continues to be tender on palpation. Patient reported that the pain was constant and aching sensation. She denies pain currently however is tender on palpation. Denies having any nausea, vomiting, or diarrhea. She reports that her last bowel movement was yesterday. She denies having any blood in her stool or black or tarry stools. She also reported that she had pain in the center of her chest. She reports having intermittent dyspnea on exertion. She denies having any cough, congestion, fever, chills. CBC/BMP: 01/28/17 0703 01/28/17 0703 Significant Findings Laboratory Tests Test 01/26/17 01/27/17 01/27/17 01/28/17 15:10 04:35 04:55 07:03 Urine Random Total Protein 43 MG/DL (0-11.8) Urine Protein/Creatinine Ratio 1.54 (0.00-0.14) Urine Turbidity HAZY (CLEAR) Urine Protein 30 mg/dL (NEG-TRACE) Urine Leukocyte Esterase LARGE (NEG) Urine WBC 57 /hpf (0-5) Urine WBC Clumps RARE (NONE) Urine Bacteria MANY /hpf (NONE) Urine Mucus FEW /lpf (OCC) Chloride Level 110 MEQ/L 110 MEQ/L (98-107) (98-107) Blood Urea Nitrogen 58 MG/DL (7-18) 61 MG/DL (7-18) Creatinine 2.14 MG/DL 2.10 MG/DL (0.50-1.00) (0.50-1.00) Estimat Glomerular Filtration 23 ML/MIN (>89) 23 ML/MIN (>89) Rate Random Glucose 134 MG/DL 139 MG/DL (74-106) (74-106) Hematocrit 34.9 % 33.7 % (35.0-46.0) (35.0-46.0) Monocytes (%) (Auto) 8.8 % (0.0-8.0) 9.2 % (0.0-8.0) Red Blood Count 3.94 MIL/MM3 (4.00-5.30) Hemoglobin 11.3 GM/DL (11.6-15.3) PE at Discharge GENERAL: Alert not oriented SKIN: Warm and dry. HEAD: Normocephalic. EYES: No scleral icterus. No injection or drainage. NECK: Supple, trachea midline. No JVD or lymphadenopathy. CARDIOVASCULAR: Regular rate and rhythm without murmurs, gallops, or rubs. RESPIRATORY: Breath sounds equal bilaterally. No accessory muscle use. GASTROINTESTINAL: Abdomen soft, non-tender, nondistended. MUSCULOSKELETAL: No cyanosis, or edema. BACK: Nontender without obvious deformity. No CVA tenderness. Hospital Course The patient is a 66 year old female who presents to the [facility] emergency department with midepigastric abdominal pain and chest discomfort. . Patient is a poor historian and information has been obtained through chart. Patients abdominal pain and chest pain resolved without intervention. Patient was also seen by renal during her stay for CKD. Patient was not complaint and refused IVF stating she did not need any. Neuro was also consulted during her stay and head CT obtained which was negative for acute findings. She is discharged home if cleared per Neuro. Patient is alert but not oriented. She is refusing care at times. Will discharge home with [facility] and will obtain follow up labs on Wednesday. This has been reviewed with Dr. Muir. Pt Condition on Discharge: Good Discharge Disposition: Disch w/ Home Health Serv Discharge Instructions DIET: Follow Instructions for: Renal Failure Diet Activities you can perform: Regular-No Restrictions Follow up Referrals: Gastroenterology - 1 Week @ [facility] had EGD/colonoscopy 2015, need to be repeated per procedure notes PCP Follow-up - 1 Week @ [facility] New Orders: BASIC METABOLIC PROF - 2 Days @ OUTPATIENT CBC NO DIFF - 2 Days @ OUTPATIENT New Medications: Amlodipine (Norvasc) 10 Mg Tab 10 MG PO DAILY Blood Pressure Management #30 TAB Cholecalciferol (Vitamin D3) 5,000 Unit Cap 5000 UNITS PO DAILY Electrolyte Replacement #30 CAP Pantoprazole (Pantoprazole) 40 Mg Tab 40 MG PO DAILY Heartburn Management #30 TAB Sulfamethoxazole/Trimethoprim (Sulfamethoxazole-Tmp Ss Tablet) 400 Mg-80 Mg Tablet 1 TAB PO DAILY Infection #3 TAB Continued Medications: Acetaminophen (Tylenol) 325 Mg Tab 650 MG PO Q4H PRN TEMP >101F, PAIN, HEADACHE Days 30 TAB Aspirin (Aspirin) 81 Mg Chew 81 MG CHEW ONCE #1 Ref 0 TAB Carvedilol (Carvedilol) 3.125 Mg Tab 3.125 MG PO BID #60 Ref 0 TAB Furosemide (Lasix) 20 Mg Tab 20 MG PO DAILY #30 Ref 0 TAB Metformin (Metformin) 850 Mg Tab 850 MG PO TIDPC With meals Blood Sugar Management Ref 0 TAB Pravastatin (Pravastatin) 10 Mg Tab 10 MG PO HS Cholesterol Management #30 Ref 0 TAB Spironolactone (Spironolactone) 25 Mg Tab 25 MG PO BID #60 Ref 0 TAB Discontinued Medications: Amlodipine (Amlodipine) 5 Mg Tab 5 MG PO DAILY Blood Pressure Management #30 Ref 0 TAB Gabapentin (Gabapentin) 300 Mg Cap 300 MG PO TID #90 Ref 0 CAP Eva Sosa Jan 29, 2017 13:12
[2017-01-29 16:00] VITALS: BP 131/63; PULSE 70; RESP 16; TEMP 98.1; O2SAT 97
--- NOTE | 2017-01-29 16:44 | HHI.PR ---
Review/Management Diagnosis 1. History of dementia. 2. Mild anxiety. 3. Congestive heart failure. 4. Coronary artery disease. 5. Hypertension. 6. Hyperlipidemia. 7. Sleep apnea. 8. History of carotid artery disease as per medical records review Plan Stable non-focal neurologic exam No acute intracranial abnormality on head imaging Patient may follow up with neurology outpatient Please call for questions Diagnosis/Plan: Subjective Subjective Comments No acute events reported Head CT scan revealed no acute intracranial abnormality Active Medications Current Medications Medications (Trade) Dose Ordered Sig/Liliya Route Start Time Stop Time Status Last Admin (NS Flush) 2 ml UNSCH PRN IV FLUSH 01/24/17 22:15 01/26/17 16:17 (NS Flush) 2 ml BID IV FLUSH 01/25/17 09:00 01/26/17 08:55 (Narcan Inj) 0.4 mg UNSCH PRN IV 01/24/17 22:15 (Tylenol) 650 mg Q4H PRN PO 01/25/17 09:15 01/28/17 21:01 (Coreg) 3.125 mg BID PO 01/25/17 21:00 01/29/17 09:17 (Lasix) 20 mg DAILY PO 01/26/17 09:00 01/29/17 09:17 (Pravachol) 10 mg HS PO 01/25/17 21:00 01/25/17 21:29 (Aldactone) 25 mg BID PO 01/25/17 21:00 01/29/17 09:18 (Lovenox Inj) 30 mg Q24H SQ 01/25/17 10:00 01/26/17 10:03 (D50w (Vial) Inj) 50 ml UNSCH PRN IV 01/25/17 10:00 (Glucagon Inj) 1 mg UNSCH PRN OTHER 01/25/17 10:00 (Marine-Colace) 2 tab HS PO 01/25/17 21:00 01/25/17 21:29 (Protonix) 40 mg DAILY PO 01/26/17 09:00 01/29/17 09:17 (Vitamin D3) 5,000 units DAILY PO 01/26/17 09:30 01/28/17 09:00 (Norvasc) 10 mg DAILY PO 01/29/17 09:00 01/29/17 09:17 (Bactrim 400-80 Mg) 1 tab DAILY PO 01/28/17 13:15 01/29/17 09:17 Allergies Allergies Coded Allergies Keflex (Verified Allergy, Intermediate, Hives, 01/24/17) MRI PRECAUTION (Verified Adverse Reaction, Severe, NON REVO PACEMAKER LRS, 01/24/17) *MDRO Multi-Drug Resistant Organism (Unverified Adverse Reaction, Unknown, ) Review of Systems All other ROS: ROS reviewed as documented in chart Exam I&O / VS 01/28/17 01/28/17 01/29/17 14:59 22:59 06:59 Intake Total 1040 ml 480 ml 360 ml Balance 1040 ml 480 ml 360 ml Intake Oral 1040 ml 480 ml 360 ml # Voids 3 2 2 # Bowel Movements 0 0 Vital Signs Date Time Temp Pulse Resp B/P Pulse Ox O2 Delivery O2 Flow Rate FiO2 01/29/17 16:00 98.1 70 16 131/63 97 01/29/17 12:00 96.2 70 16 132/66 92 01/29/17 08:00 96.8 62 18 164/70 94 01/29/17 00:29 97.1 70 17 134/63 98 01/28/17 20:20 97.4 73 16 122/74 93 Exam Comments GENERAL: Awake, alert, pleasant, calm, not in acute apparent distress. HEENT: Atraumatic, normocephalic. Intact hearing. Intact vision. RESPIRATORY: Clear to auscultation. No wheezes. CARDIOVASCULAR: Regular rate and rhythm. GASTROINTESTINAL: Soft abdomen. MUSCULOSKELETAL: Extremities without cyanosis, edema or clubbing. NEUROLOGICAL: Awake, alert, oriented to place (hospital). Not oriented to time, year, day or date" now this I can't tell you". Unaware of the name of the current President of the [employer]. Intact speech content. Intact naming, repetition. No dysarthria. No dysphagia. Flat mood and affect. Cranial nerve examination II-XII are grossly intact. Upper and lower extremities are grossly 5/5 with intact cerebellar function and intact sensation. PSYCHIATRIC: flat affect. No hallucination. Objective Radiology Results Last [address] 01/28/17 0000 Signed Impressions: Service Date/Time: January 10:45 - CONCLUSION: No acute disease. James Carlos Jr., MD Micro and Labs Date/Time Procedure Status Source Growth 01/26/17 15:10 Urine Culture - Final Complete Urine Catheterized Urine Escherichia Coli Marissa Blanco MD Jan 29, 2017 16:44
[2017-01-29 20:09] VITALS: BP 147/66; PULSE 73; RESP 18; TEMP 98.8; O2SAT 97
== END 2017-01-29 20:34 | disposition home health service (06) | DRG 683 ==
LOC: NEPE 17:56 → NEDA 21:25 → NEPGCP 01-25 01:18 → N07B 01-26 04:12
PROVIDERS: ADMIT Family Medicine; ATTEND Family Medicine
DX: N17.9 Acute kidney failure, unspecified (principal); I42.9 Cardiomyopathy, unspecified; I50.22 Chronic systolic (congestive) heart failure; I13.0 Hypertensive heart and chronic kidney disease with heart failure and stage 1 through stage 4 chronic kidney disease, or unspecified chronic kidney disease; F03.90 Unspecified dementia, unspecified severity, without behavioral disturbance, psychotic disturbance, mood disturbance, and anxiety; N39.0 Urinary tract infection, site not specified; R07.9 Chest pain, unspecified; R10.13 Epigastric pain; I25.82 Chronic total occlusion of coronary artery; N18.4 Chronic kidney disease, stage 4 (severe); E11.22 Type 2 diabetes mellitus with diabetic chronic kidney disease; I25.10 Atherosclerotic heart disease of native coronary artery without angina pectoris; G62.9 Polyneuropathy, unspecified; K21.9 Gastro-esophageal reflux disease without esophagitis; M81.0 Age-related osteoporosis without current pathological fracture; E78.5 Hyperlipidemia, unspecified; F41.9 Anxiety disorder, unspecified; M79.7 Fibromyalgia; G47.30 Sleep apnea, unspecified; F41.8 Other specified anxiety disorders; Z86.14 Personal history of Methicillin resistant Staphylococcus aureus infection; M19.90 Unspecified osteoarthritis, unspecified site; J44.9 Chronic obstructive pulmonary disease, unspecified; Z86.73 Personal history of transient ischemic attack (TIA), and cerebral infarction without residual deficits; Z95.810 Presence of automatic (implantable) cardiac defibrillator; Z87.891 Personal history of nicotine dependence; K44.9 Diaphragmatic hernia without obstruction or gangrene; I44.4 Left anterior fascicular block; N20.0 Calculus of kidney; D35.02 Benign neoplasm of left adrenal gland; D35.01 Benign neoplasm of right adrenal gland; E11.42 Type 2 diabetes mellitus with diabetic polyneuropathy; I34.0 Nonrheumatic mitral (valve) insufficiency; I65.21 Occlusion and stenosis of right carotid artery; Z87.11 Personal history of peptic ulcer disease; E86.0 Dehydration; E55.9 Vitamin D deficiency, unspecified; R74.8 Abnormal levels of other serum enzymes; Z53.29 Procedure and treatment not carried out because of patient's decision for other reasons; R41.82 Altered mental status, unspecified
CPT/HCPCS: 70450; 71010; 74176; 76937; 80048; 80053; 80061; 81001; 82306; 82550; 82570; 82948; 83036; 83690; 83735; 83880; 84155; 84156; 84300; 84484; 85025; 85610; 85730; 86850; 86900; 86901; 87077; 87086; 87186; 87641; 93005; C9113; J0610; J1650; J1815; J7050